=== PATIENT | female | born 1950 | race Caucasian/White ===

== ENCOUNTER 2016-06-15 22:18 | Inpatient (IN) | payer MEDICARE, BC ==
[~2016-06-15] VITALS: Ht 162.6 cm; Wt 76.2 kg
[~2016-06-15 22:18] MED LIST: ALPR1TAB2 PO; APIX5TAB PO; ASPI-482 PO; ATOR10TA PO; DILT120C97 PO; DRON400T PO; HYDR-2666 PO; LISI-338 PO; LISI10TA2 PO; VERA240C2 PO
[2016-06-15] MEDS ORDERED: IV NORMAL SALINE 1000ML BAG 1,000 ML IV SCH (22:30)
[2016-06-15 22:39] LABS: BASO # 0.1 x10^3/uL (0.0-0.2); BASO % 1 % (0-3); EOS % 2 % (0-3); HEMATOCRIT 43.3 % (36.0-47.0); HEMOGLOBIN 14.6 g/dL (12.0-15.5); LYMPH % 27 % (24-48); MEAN CORPUSCULAR HEMOGLOBIN 27 pg (25-35); MEAN CORPUSCULAR HGB CONC 34 g/dL (31-37); MEAN CORPUSCULAR VOLUME 80 fL (79-100); MONO % 7 % (0-9); NEUT % 64 % (31-73); PLATELET COUNT 292 x10^3/uL (140-400); RED BLOOD COUNT 5.44 x10^6/uL (3.50-5.40); RED CELL DISTRIBUTION WIDTH 14.8 % (11.5-14.5)
[2016-06-15] MEDS ORDERED: DILTIAZEM 125 MG in IV DEXTROSE 5% 100 ML IV ONE (22:45)
[2016-06-15] MEDS ORDERED: DILTIAZEM IV PUSH 25 MG/5 ML VIAL. IVP ONE (22:45)
[2016-06-15 22:54] LABS: CALCIUM 9.4 mg/dL (8.5-10.1); CREATININE 0.8 mg/dL (0.6-1.0); POTASSIUM 3.2 mmol/L (3.5-5.1)
[2016-06-15 22:57] LABS: BARBITURATES NEG (NEG); BENZODIAZEPINES NEG (NEG); CANNABINOIDS NEG (NEG); COCAINE NEG (NEG); METHADONE NEG (NEG); OPIATES POS (NEG); PHENCYCLIDINE NEG (NEG)
[2016-06-15 23:01] LABS: ETHANOL, URINE NEG (NEG)
--- NOTE | 2016-06-15 23:01 | PHYS DOC ---
Past Medical History Past Medical History: A-Fib, High Cholesterol, Hypertension, Other Additional Past Medical Histor: bladder stones, AAA, bowel obstruction Past Surgical History: Cholecystectomy, Hysterectomy, Other Additional Past Surgical Histo: bladder lift; bladder stone removal Alcohol Use: Occasionally Drug Use: None Adult General Chief Complaint Chief Complaint: CHEST PAIN HPI HPI Patient is a 66 year old female who presents with palpitations and lightheadedness for the past hour. She has slight dyspnea. She specifically denies chest pain to this provider as documented in triage note; only states she has palpitative discomfort. She has been taking OTC cough syrup recently for slight cold symptoms. Otherwise denies other new stimulant use. Denies fever or chills, cough production, myalgia, hemoptysis, leg pain or swelling, orthopnea, abdominal pain, nausea or vomiting, diarrhea. Review of Systems Review of Systems Constitutional: Denies fever or chills [] Eyes: Denies change in visual acuity, redness, or eye pain [] HENT: Denies nasal congestion or sore throat [] Respiratory: Denies cough or shortness of breath [] Cardiovascular: No additional information not addressed in HPI [] GI: Denies abdominal pain, nausea, vomiting, bloody stools or diarrhea [] : Denies dysuria or hematuria [] Musculoskeletal: Denies back pain or joint pain [] Integument: Denies rash or skin lesions [] Neurologic: Denies headache, focal weakness or sensory changes [] Endocrine: Denies polyuria or polydipsia [] Current Medications Current Medications Current Medications Medications (Trade) Dose Ordered Sig/Riya Start Time Stop Time Status Last Admin Dose Admin Diltiazem HCl (Cardizem) 10 mg 1X ONCE 06/15/16 22:45 06/15/16 22:46 DC 06/15/16 22:45 10 MG Diltiazem HCl/ Dextrose (Cardizem) 125 ml @ 0 mls/hr 1X ONCE 06/15/16 22:45 06/15/16 22:46 DC 06/15/16 22:51 5 MLS/HR Sodium Chloride 1,000 ml @ 1,000 mls/hr Q1H 06/15/16 22:30 06/15/16 23:29 DC 06/15/16 22:44 1,000 MLS/HR Allergies Allergies Allergies Coded Allergies Type Severity Reaction Last Updated Verified codeine Allergy Intermediate 12/07/14 Yes metaxalone Allergy Intermediate 12/07/14 Yes nifedipine Allergy Intermediate Hives 12/07/14 Yes venom-honey bee Allergy Intermediate 12/07/14 Yes Physical Exam Physical Exam Constitutional: Well developed, well nourished, no acute distress, non-toxic appearance. [] HENT: Normocephalic, atraumatic, bilateral external ears normal, oropharynx moist, nose normal. [] Eyes: PERRLA, EOMI. [] Neck: Normal range of motion, supple. [] Cardiovascular: Irregular tachycardia [] Lungs & Thorax: Bilateral breath sounds clear to auscultation [] Abdomen: Bowel sounds normal, soft, no tenderness. [] Skin: Warm, dry, no erythema, no rash. [] Back: Normal ROM. [] Extremities: No tenderness, ROM intact, no edema, no palpable cord. [] Neurologic: Alert and oriented X 3, normal motor function, normal sensory function, no focal deficits noted. [] Psychologic: Affect normal, judgement normal, mood normal. [] Current Patient Data Vital Signs Vital Signs Date Time Temp Pulse Resp B/P Pulse Ox O2 Delivery O2 Flow Rate FiO2 06/15/16 23:30 144 16 133/64 100 Room Air 06/15/16 22:32 97.6 97.6 Lab Values Laboratory Tests Test 06/15/16 22:30 06/15/16 22:40 White Blood Count 11.0x10^3/uL (4.0-11.0) Red Blood Count 5.44x10^6/uL (3.50-5.40) H Hemoglobin 14.6g/dL (12.0-15.5) Hematocrit 43.3% (36.0-47.0) Mean Corpuscular Volume 80fL (79-100) Mean Corpuscular Hemoglobin 27pg (25-35) Mean Corpuscular Hemoglobin Concent 34g/dL (31-37) Red Cell Distribution Width 14.8% (11.5-14.5) H Platelet Count 292x10^3/uL (140-400) Neutrophils (%) (Auto) 64% (31-73) Lymphocytes (%) (Auto) 27% (24-48) Monocytes (%) (Auto) 7% (0-9) Eosinophils (%) (Auto) 2% (0-3) Basophils (%) (Auto) 1% (0-3) Neutrophils # (Auto) 7.0x10^3uL (1.8-7.7) Lymphocytes # (Auto) 3.0x10^3/uL (1.0-4.8) Monocytes # (Auto) 0.7x10^3/uL (0.0-1.1) Eosinophils # (Auto) 0.2x10^3/uL (0.0-0.7) Basophils # (Auto) 0.1x10^3/uL (0.0-0.2) Sodium Level 135mmol/L (136-145) L Potassium Level 3.2mmol/L (3.5-5.1) L Chloride Level 98mmol/L (98-107) Carbon Dioxide Level 24mmol/L (21-32) Anion Gap 13 (6-14) Blood Urea Nitrogen 15mg/dL (7-20) Creatinine 0.8mg/dL (0.6-1.0) Estimated GFR (Cockcroft-Gault) 72.0 Glucose Level 122mg/dL (70-99) H Calcium Level 9.4mg/dL (8.5-10.1) Troponin I Quantitative < 0.017ng/mL (0.000-0.055) RJ-Gyy-Z-Type Natriuretic Peptide 42pg/mL (0-124) Urine Opiates Screen Pos (NEG) Urine Methadone Screen Neg (NEG) Urine Barbiturates Neg (NEG) Urine Phencyclidine Screen Neg (NEG) Urine Amphetamine/Methamphetamine Neg (NEG) Urine Benzodiazepines Screen Neg (NEG) Urine Cocaine Screen Neg (NEG) Urine Cannabinoids Screen Neg (NEG) Urine Ethyl Alcohol Neg (NEG) Laboratory Tests 06/15/16 22:30 Laboratory Tests 06/15/16 22:30 EKG EKG EKG as interpreted by me as A. fib with RVR, rate 154 Radiology/Procedures Radiology/Procedures Chest xray as interpreted by me with no acute cardiopulmonary disease process Course & Med Decision Making Course & Med Decision Making Pertinent Labs and Imaging studies reviewed. (See chart for details) Laboratory evaluation is largely unremarkable. She has required diltiazem drip for management of A. fib with RVR. She states she no longer sees Appl, so will admit to hospitalist service. Discussed case with Dr. Dominguez, who will admit. Cardiology consultation placed. Natty Disclaimer Natty Disclaimer This electronic medical record was generated, in whole or in part, using a voice recognition dictation system. Critical Care Time Critical care time was 35 minutes exclusive of procedures. Departure Departure Impression: Primary Impression: Atrial fibrillation with rapid ventricular response Disposition: ADMITTED INPATIENT Condition: CRITICAL Kenton LAU MD Jun 15, 2016 23:01
[2016-06-16] VITALS (10 sets, daily range): BP systolic 82–135; BP diastolic 25–65
[2016-06-16] MEDS ORDERED: ACETAMINOPHEN 325 MG TABLET. PO PRN
[2016-06-16] MEDS ORDERED: ONDANSETRON PF 4 MG/2 ML VIAL. IV PRN
[2016-06-16] MEDS ORDERED: LISI-334 PO (01:22)
[2016-06-16] MEDS ORDERED: ALPR0.254 PO (01:22)
[2016-06-16] MEDS ORDERED: OM-31CAP4 PO (01:22)
[2016-06-16] MEDS ORDERED: MULT-245 PO (01:22)
[2016-06-16] MEDS ORDERED: METO25TA9 PO (01:22)
[2016-06-16] MEDS ORDERED: HYDR-2680 PO (01:22)
[2016-06-16] MEDS ORDERED: PRAM0.255 PO (01:22)
[2016-06-16] MEDS ORDERED: POTA500T5 PO (01:22)
[2016-06-16] MEDS: ALPRAZOLAM 0.25 MG TABLET PO PRN ×2 (02:07→20:34)
[2016-06-16] MEDS: HYDROCODONE/APAP 10/325 TABLET. PO PRN ×2 (02:07→14:39)
[2016-06-16] MEDS: PRAMIPEXOLE 0.25 MG TABLET. PO SCH ×2 (02:07→20:34)
--- NOTE | 2016-06-16 07:44 | RAD ---
Portable chest, 06/15/2016: History: Dyspnea, atrial fibrillation The heart size is normal. There is calcific plaquing of the aorta. The pulmonary vascularity is within normal limits. No pulmonary infiltrates are seen. There is no evidence of pleural fluid. IMPRESSION: No acute cardiopulmonary abnormality is detected.
[2016-06-16] MEDS: ASPIRIN ENTERIC COATED 81 MG TABLET.DR. PO SCH (08:57)
[2016-06-16] MEDS: MULTIVITAMIN with MINERAL TABLET. PO SCH (08:57)
[2016-06-16] MEDS: APIXABAN 5 MG TABLET. PO SCH ×2 (08:57→20:34)
[2016-06-16] MEDS: LISINOPRIL 20 MG TABLET PO SCH (09:00)
[2016-06-16] MEDS ORDERED: NON FORMULARY ITEM (Potassium Gluconate 500 MG) PO SCH (09:00)
[2016-06-16] MEDS ORDERED: METOPROLOL SUCC 24HR ER 25 MG TAB.ER.24H. PO SCH (09:00)
--- NOTE | 2016-06-16 12:53 | HP ---
ADMIT DATE: 06/16/2016 CHIEF COMPLAINT: Palpitations. HISTORY OF PRESENT ILLNESS: The patient is a 66-year-old woman with past medical history of AFib, previously admitted in 11/2014 here, who presented with palpitations and lightheadedness that started at home. She also reported slight dyspnea with this, but denied any chest pain, any nausea, vomiting, numbness or tingling. She relates that she had been diagnosed with a flu on 06/01/2016 and had been dealing with the aftermath cough and had been taking lxom-rcg-qopxojo cough medications. She denies any ongoing fevers or chills. She did, however, have an episode of diarrhea yesterday. In the Emergency Room, she was found with atrial fibrillation and rapid ventricular response and was therefore started on diltiazem drip and admitted to the CV ICU. PAST MEDICAL HISTORY: AFib, hypertension, hypercholesterolemia, AAA, status post cholecystectomy, hysterectomy, partial colectomy for polyps. FAMILY HISTORY: Positive for heart disease in mother. SOCIAL HISTORY: Lives by herself. Quit smoking after her AFib episode in 2014, accumulating approximately 07-ulae-wxtu history. No alcohol or drug use. ALLERGIES: CODEINE, METAXALONE, NIFEDIPINE. MEDICATIONS: Home medications reconciled with MAR. REVIEW OF SYSTEMS: Positive as per HPI. Her palpitations actually currently are resolved. She denies any ongoing symptoms otherwise. PHYSICAL EXAMINATION: VITAL SIGNS: From today show a blood pressure of 109/58, heart rate of 65, respiratory rate at 18. She is afebrile. GENERAL: This is a well-nourished, well developed 66-year-old woman, alert and oriented, in no acute distress. HEENT: Shows no scleral icterus. NECK: Supple without any lymphadenopathy. LUNGS: Clear to auscultation bilaterally. HEART: Has regular rate and rhythm. ABDOMEN: Has positive bowel sounds, soft, nontender. EXTREMITIES: Show no edema. SKIN: Warm, soft and dry without any rash. LABORATORY DATA: CBC with a WBC of 11.0, hemoglobin of 14.6, platelets of 292. Chemistries with a BUN and creatinine of 15 and 0.8, potassium of 3.5, initial troponin negative, BNP negative. Tox screen is positive for opiates. IMAGING DATA: Chest x-ray shows no acute cardiopulmonary abnormality. ASSESSMENT AND PLAN: The patient is a 66-year-old woman with episode of atrial fibrillation and rapid ventricular response, this now has resolved. She is actually in sinus rhythm at this time. Initial troponin was negative. With her previous history, concern is that potential decongestants in her home medications or potentially slightly low potassium levels could have triggered her episode. Cardiac consult is pending. We will await further input. We will continue all her home medications including the Eliquis for PAF. Discharge plans as per Cardiology. MICHA BARAKAT MD DR: UR/nts JOB#: [id number] / [id number] TOLU
[2016-06-16 13:58] LABS: BILIRUBIN,URINE NEGATIVE (NEG); GLUCOSE,URINE NEGATIVE (NEG); NITRITE,URINE POSITIVE (NEG); PH,URINE 5.5; PROTEIN,URINE NEGATIVE (NEG-TRACE); UROBILINOGEN,URINE 0.2 mg/dL (0.2 mg/dL)
[2016-06-16 14:00] LABS: BACTERIA,URINE MANY /HPF (0-FEW); RBC,URINE OCC /HPF (0-2); SQUAMOUS EPITHELIAL CELL,UR FEW /LPF; WBC,URINE 20-40 /HPF (0-4)
--- NOTE | 2016-06-16 14:20 | EKG ---
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
--- NOTE | 2016-06-16 15:44 | PDOC2 ---
CONSULT Date of Consult Date of Consult DATE: 06/16/16 TIME: 15:38 Reason for Consult Reason for Consult: Atrial fibrillation Referring Physician Referring Physician: Dr. Posadas Identification/Chief Complaint Chief Complaint Palpitations Source Source: Chart review, Patient History of Present Illness Reason for Visit: 66-year-old female with history of paroxysmal atrial fibrillation presented with palpitations associated with retrosternal chest heaviness and lightheadedness. She was found to be in atrial fibrillation with rapid ventricular response and started on intravenous Cardizem infusion with successful conversion to sinus rhythm. Patient presently feels significantly better and denied any chest pain or palpitations. She denied any orthopnea/PND or syncope. Past Medical History Cardiovascular: AFIB, HTN, Hyperlipidemia, Other Pulmonary: No pertinent hx CENTRAL NERVOUS SYSTEM: Other GI: No pertinent hx Heme/Onc: No pertinent hx Hepatobiliary: No pertinent hx Psych: Anxiety Musculoskeletal: Osteoarthritis Rheumatologic: No pertinent hx Infectious disease: No pertinent hx Renal/: No pertinent hx, Urinary Incontinence, Other Endocrine: No pertinent hx Past Surgical History Past Surgical History: Hysterectomy, Other Family History Family History: Coronary Artery Disease Social History ALCOHOL: none Drugs: None Lives: Alone Domestic Violence: Neg Current Problem List Problem List Problems Medical Problems: (1) A-fib Status: Acute (2) Atrial fibrillation with rapid ventricular response Status: Acute Current Medications Current Medications Current Medications Sodium Chloride 1,000 ml @ 1,000 mls/hr Q1H IV Last administered on 06/15/16 22:44; Start 06/15/16 at 22:30; Stop 06/15/16 at 23:29; Status DC Diltiazem HCl/ Dextrose (Cardizem) 125 ml @ 0 mls/hr 1X ONCE IV Last administered on 06/15/16 22:51; Start 06/15/16 at 22:45; Stop 06/15/16 at 22:46 ; Status DC Diltiazem HCl (Cardizem) 10 mg 1X ONCE IVP Last administered on 06/15/16 22: 45; Start 06/15/16 at 22:45; Stop 06/15/16 at 22:46; Status DC Ondansetron HCl (Zofran) 4 mg PRN Q8HRS PRN IV NAUSEA/VOMITING; Start 06/16/16 at 00:00; Stop 06/16/16 at 23:59 Acetaminophen (Tylenol) 650 mg PRN Q4HRS PRN PO FEVER Last administered on 06/16 12:25; Start 06/16/16 at 00:00; Stop 06/16/16 at 23:59 Alprazolam (Xanax) 0.25 mg PRN QHS PRN PO ANXIETY / AGITATION Last administered on 06/16/16 02:07; Start 06/16/16 at 02:00 Apixaban (Eliquis) 5 mg BID PO Last administered on 06/16/16 08:57; Start at 09:00 Aspirin (Ecotrin) 81 mg DAILY PO Last administered on 06/16/16 08:57; Start at 09:00 Acetaminophen/ Hydrocodone Bitart (Lortab 10/325) 1 tab PRN Q8HRS PRN PO PAIN Last administered on 06/16/16 14:39; Start 06/16/16 at 02:00 Lisinopril (Prinivil) 20 mg DAILY PO ; Start 06/16/16 at 09:00 Metoprolol Succinate (Toprol Xl) 25 mg DAILY PO ; Start 06/16/16 at 09:00 Pramipexole Dihydrochloride (miraPEX) 0.25 mg HS PO ; Start 06/16/16 at 21:00; Stop 06/16/16 at 21:00; Status DC Multivitamins/ Calcium (Thera M Plus) 1 tab DAILY PO Last administered on 08:57; Start 06/16/16 at 09:00 Fish Oil (Fish Oil) 1,000 mg HS PO ; Start 06/16/16 at 21:00 Non-Formulary Medication 500 mg DAILY PO ; Start 06/16/16 at 09:00; Stop at 09:00; Status DC Pramipexole Dihydrochloride (miraPEX) 0.25 mg HS PO Last administered on 02:07; Start 06/16/16 at 02:15 Info (Anti-Coagulation Monitoring By Pharmacy) 1 each PRN DAILY PRN MC SEE COMMENTS; Start 06/16/16 at 15:00 Active Scripts Active Reported Potassium Gluconate 500 Mg Tablet 500 Mg PO DAILY Multi Vitamin Daily (Multivitamin) 1 Each Tablet 1 Each PO DAILY Fish Oil + Vitamin D-3 Softgel (Om-3/Dha/Epa/Fish Oil/Vit D3) 1 Each Capsule 1 Each PO HS Metoprolol Succinate ( Xl ) (Metoprolol Succinate) 25 Mg Tab.er.24h 25 Mg PO DAILY Mirapex (Pramipexole Di-Hcl) 0.25 Mg Tablet 0.25 Mg PO HS Alprazolam 0.25 Mg Tablet 0.25 Mg PO HS PRN Lortab 10-325 mg Tablet (Hydrocodone/Acetaminophen) 1 Each Tablet 1 Tab PO PRN Q8HRS PRN Lisinopril 20 Mg Tablet 20 Mg PO DAILY Aspir 81 (Aspirin) 81 Mg Tablet.dr 1 Tab PO DAILY Eliquis (Apixaban) 5 Mg Tablet 5 Mg PO BID Allergies Allergies: Coded Allergies: codeine (Verified Allergy, Intermediate, 12/07/14) metaxalone (Verified Allergy, Intermediate, 12/07/14) nifedipine (Verified Allergy, Intermediate, Hives, 12/07/14) venom-honey bee (Verified Allergy, Intermediate, 12/07/14) ROS PSYCHOLOGICAL ROS: No: Hallucinations Eyes: No Loss of vision HEENT: No: Epistaxis Respiratory: No: Hemoptysis, Orthopnea Cardiovascular: yes Chest Pain, yes Palpitations Gastrointestinal: No Diarrhea, No Vomiting Genitourinary: No Hematuria Neurological: No Seizures Skin: No Rash Physical Exam General: Alert, Oriented X3 HEENT: Atraumatic, PERRLA Lungs: Clear to auscultation Heart: Regular rate Abdomen: Soft, No tenderness Extremities: No edema Psych/Mental Status: Mood NL Vitals VITALS Vital Signs Date Time Temp Pulse Resp B/P Pulse Ox O2 Delivery O2 Flow Rate FiO2 06/16/16 14:58 97.8 66 18 135/37 94 Room Air 97.8 Labs Labs Laboratory Tests Test 06/15/16 22:30 06/15/16 22:40 06/16/16 13:00 White Blood Count 11.0x10^3/uL (4.0-11.0) Red Blood Count 5.44x10^6/uL (3.50-5.40) Hemoglobin 14.6g/dL (12.0-15.5) Hematocrit 43.3% (36.0-47.0) Mean Corpuscular Volume 80fL (79-100) Mean Corpuscular Hemoglobin 27pg (25-35) Mean Corpuscular Hemoglobin Concent 34g/dL (31-37) Red Cell Distribution Width 14.8% (11.5-14.5) Platelet Count 292x10^3/uL (140-400) Neutrophils (%) (Auto) 64% (31-73) Lymphocytes (%) (Auto) 27% (24-48) Monocytes (%) (Auto) 7% (0-9) Eosinophils (%) (Auto) 2% (0-3) Basophils (%) (Auto) 1% (0-3) Neutrophils # (Auto) 7.0x10^3uL (1.8-7.7) Lymphocytes # (Auto) 3.0x10^3/uL (1.0-4.8) Monocytes # (Auto) 0.7x10^3/uL (0.0-1.1) Eosinophils # (Auto) 0.2x10^3/uL (0.0-0.7) Basophils # (Auto) 0.1x10^3/uL (0.0-0.2) Sodium Level 135mmol/L (136-145) Potassium Level 3.2mmol/L (3.5-5.1) Chloride Level 98mmol/L (98-107) Carbon Dioxide Level 24mmol/L (21-32) Anion Gap 13 (6-14) Blood Urea Nitrogen 15mg/dL (7-20) Creatinine 0.8mg/dL (0.6-1.0) Estimated GFR (Cockcroft-Gault) 72.0 Glucose Level 122mg/dL (70-99) Calcium Level 9.4mg/dL (8.5-10.1) Troponin I Quantitative < 0.017ng/mL (0.000-0.055) TS-Atq-N-Type Natriuretic Peptide 42pg/mL (0-124) Urine Opiates Screen Pos (NEG) Urine Methadone Screen Neg (NEG) Urine Barbiturates Neg (NEG) Urine Phencyclidine Screen Neg (NEG) Urine Amphetamine/Methamphetamine Neg (NEG) Urine Benzodiazepines Screen Neg (NEG) Urine Cocaine Screen Neg (NEG) Urine Cannabinoids Screen Neg (NEG) Urine Ethyl Alcohol Neg (NEG) Urine Collection Type Unknown Urine Color Yellow Urine Clarity Clear Urine pH 5.5 Urine Specific [place] <=1.005 Urine Protein Negativemg/dL (NEG-TRACE) Urine Glucose (UA) Negativemg/dL (NEG) Urine Ketones (Stick) Negativemg/dL (NEG) Urine Blood Moderate (NEG) Urine Nitrite Positive (NEG) Urine Bilirubin Negative (NEG) Urine Urobilinogen Dipstick 0.2mg/dL (0.2 mg/dL) Urine Leukocyte Esterase Large (NEG) Urine RBC Occ/HPF (0-2) Urine WBC 20-40/HPF (0-4) Urine Squamous Epithelial Cells Few/LPF Urine Bacteria Many/HPF (0-FEW) Laboratory Tests Test 06/15/16 22:30 06/15/16 22:40 06/16/16 13:00 White Blood Count 11.0x10^3/uL (4.0-11.0) Red Blood Count 5.44x10^6/uL (3.50-5.40) Hemoglobin 14.6g/dL (12.0-15.5) Hematocrit 43.3% (36.0-47.0) Mean Corpuscular Volume 80fL (79-100) Mean Corpuscular Hemoglobin 27pg (25-35) Mean Corpuscular Hemoglobin Concent 34g/dL (31-37) Red Cell Distribution Width 14.8% (11.5-14.5) Platelet Count 292x10^3/uL (140-400) Neutrophils (%) (Auto) 64% (31-73) Lymphocytes (%) (Auto) 27% (24-48) Monocytes (%) (Auto) 7% (0-9) Eosinophils (%) (Auto) 2% (0-3) Basophils (%) (Auto) 1% (0-3) Neutrophils # (Auto) 7.0x10^3uL (1.8-7.7) Lymphocytes # (Auto) 3.0x10^3/uL (1.0-4.8) Monocytes # (Auto) 0.7x10^3/uL (0.0-1.1) Eosinophils # (Auto) 0.2x10^3/uL (0.0-0.7) Basophils # (Auto) 0.1x10^3/uL (0.0-0.2) Sodium Level 135mmol/L (136-145) Potassium Level 3.2mmol/L (3.5-5.1) Chloride Level 98mmol/L (98-107) Carbon Dioxide Level 24mmol/L (21-32) Anion Gap 13 (6-14) Blood Urea Nitrogen 15mg/dL (7-20) Creatinine 0.8mg/dL (0.6-1.0) Estimated GFR (Cockcroft-Gault) 72.0 Glucose Level 122mg/dL (70-99) Calcium Level 9.4mg/dL (8.5-10.1) Troponin I Quantitative < 0.017ng/mL (0.000-0.055) JY-Tye-J-Type Natriuretic Peptide 42pg/mL (0-124) Urine Opiates Screen Pos (NEG) Urine Methadone Screen Neg (NEG) Urine Barbiturates Neg (NEG) Urine Phencyclidine Screen Neg (NEG) Urine Amphetamine/Methamphetamine Neg (NEG) Urine Benzodiazepines Screen Neg (NEG) Urine Cocaine Screen Neg (NEG) Urine Cannabinoids Screen Neg (NEG) Urine Ethyl Alcohol Neg (NEG) Urine Collection Type Unknown Urine Color Yellow Urine Clarity Clear Urine pH 5.5 Urine Specific [place] <=1.005 Urine Protein Negativemg/dL (NEG-TRACE) Urine Glucose (UA) Negativemg/dL (NEG) Urine Ketones (Stick) Negativemg/dL (NEG) Urine Blood Moderate (NEG) Urine Nitrite Positive (NEG) Urine Bilirubin Negative (NEG) Urine Urobilinogen Dipstick 0.2mg/dL (0.2 mg/dL) Urine Leukocyte Esterase Large (NEG) Urine RBC Occ/HPF (0-2) Urine WBC 20-40/HPF (0-4) Urine Squamous Epithelial Cells Few/LPF Urine Bacteria Many/HPF (0-FEW) Assessment/Plan Assessment/Plan 1. Atrial fibrillation with rapid ventricular response: Patient has history of paroxysmal atrial fibrillation last recorded episode in 2014 but patient stated that she has been having intermittent episodes of palpitations in the interim. She was previously taking multaq that was stopped for uncertain reasons. She is usually seen at [facility] by Dr. Potts who follows her for her AAA. She is currently back in sinus rhythm. Intravenous Cardizem was stopped secondary to hypotension. Stop metoprolol and start sotalol for rhythm maintenance. If her blood pressure stabilizes, we will consider calcium channel blockers. Continue eliquis for stroke prophylaxis. Check 2-D echo to assess LV systolic function. 2. Chest pain most probably secondary to rapid ventricular response. Myocardial infarction ruled out. We will obtain Lexiscan nuclear stress test to rule out ischemia. 3. Hypertension: Well-controlled 4. AAA: Being followed by Dr. Potts at [facility]. Thank you for your consultation. SLOAN CORCORAN MD Jun 16, 2016 15:44
[2016-06-16] MEDS: ANTI-COAG MONITOR BY PHARMACY. MC PRN (15:55)
[2016-06-16] MEDS ORDERED: CEFTRIAXONE SODIUM 1 GM in IV NORMAL SALINE 50ML 50 ML IV SCH (20:00)
[2016-06-16] MEDS: SOTALOL 80 MG TABLET. PO SCH (20:34)
[2016-06-16] MEDS ORDERED: PRAMIPEXOLE 0.25 MG TABLET. PO SCH (21:00)
[2016-06-16] MEDS ORDERED: OMEGA-3 FATTY ACIDS/FISH OIL 1,000 MG CAPSULE. PO SCH (21:00)
[2016-06-17 03:00] VITALS: BP 130/60
[2016-06-17 07:00] VITALS: BP 126/62
[2016-06-17] MEDS ORDERED: REGADENOSON 0.4 MG/5 ML DISP.SYRIN. IV ONE (08:00)
--- NOTE | 2016-06-17 10:15 | EKG ---
[facility] [address] [place] [address] Test Date: 2016-06-17 Test Time: 10:13:23 Pat Name: ANASTASIA OSEGUERA Department: Room: 264 1 Gender: F Pain Coordinator: JESUS : 1950 Requested By: SLOAN CORCORAN Order Number: [id number] Reading MD: Measurements Intervals [place] Rate: 72 P: 47 FL: 162 QRS: 24 QRSD: 84 T: 36 QT: 394 QTc: 433 Interpretive Statements SINUS RHYTHM NO SPECIFIC ECG ABNORMALITIES RI6.01 Compared to ECG 12/06/2014 16:36:06 No significant changes
--- NOTE | 2016-06-17 10:37 | CARD ---
APPROVED REPORT EXAM: Two-dimensional and M-mode echocardiogram with Doppler and color Doppler. Other Information Quality : Good INDICATION Chest Pain 2D DIMENSIONS RVDd3.2 (2.9-3.5cm)Left Atrium(2D)3.6 (1.6-4.0cm) IVSd1.0 (0.7-1.1cm)Aortic Root(2D)2.4 (2.0-3.7cm) LVDd4.0 (3.9-5.9cm)LVOT Diameter1.9 (1.8-2.4cm) PWd1.1 (0.7-1.1cm)LVDs2.4 (2.5-4.0cm) FS (%) 30.0 %SV49.3 ml LVEF(%)60.0 (>50%) Aortic Valve AoV Peak Valente.128.7cm/sAoV VTI24.3cm AO Peak GR.6.6mmHgLVOT VTI 22.56cm AO Mean GR.3mmHgAVA (VTI)2.50cm2 Mitral Valve MV E Khmpbibp36.6cm/sMV DECEL [id number] MV A Vjzaqmbj575.5cm/sE/A Ratio0.6 TDI Lateral E' P. V6.11cm/sMedial E' P. V5.08cm/s E/Lateral E'9.8E/Medial E'11.7 Pulmonary Vein S1 Vbzdqaev12.9cm/sS2 Kuamvrbe46.44cm/s D2 Yfqapdmn80.4cm/sPVa [id number] LEFT VENTRICLE The left ventricle is normal size. There is mild concentric left ventricular hypertrophy. The left ve ntricular systolic function is normal and the ejection fraction is within normal range. The Ejection Fraction is 55-60%. There is normal LV segmental wall motion. Transmitral Doppler flow pattern is Gra de I-abnormal relaxation pattern. RIGHT VENTRICLE The right ventricle is normal size. The right ventricular systolic function is normal. ATRIA The left atrium size is normal. The right atrium size is normal. The interatrial septum is intact wit h no evidence for an atrial septal defect or patent foramen ovale as noted on 2-D or Doppler imaging. AORTIC VALVE The aortic valve is mildly sclerotic. Doppler and Color Flow revealed no significant aortic regurgita tion. There is no significant aortic valvular stenosis. MITRAL VALVE The mitral valve is calcified but opens well. There is no evidence of mitral valve prolapse. There is no mitral valve stenosis. Doppler and Color-flow revealed trace mitral regurgitation. TRICUSPID VALVE The tricuspid valve is normal in structure and function. Doppler and Color Flow revealed no tricuspid valve regurgitation noted. There is no tricuspid valve stenosis. PULMONIC VALVE Doppler and Color Flow revealed no pulmonic valvular regurgitation. There is no pulmonic valvular delon nosis. GREAT VESSELS The aortic root is normal in size. The ascending aorta is normal in size. The IVC is normal in size a nd collapses >50% with inspiration. PERICARDIAL EFFUSION There is no evidence of significant pericardial effusion. Critical Notification Critical Value: No <Conclusion> There is mild concentric left ventricular hypertrophy. The left ventricular systolic function is normal and the ejection fraction is within normal range. Th e Ejection Fraction is 55-60%. No significant valvular disease.
[2016-06-17 11:03] VITALS: BP 148/71
[2016-06-17] MEDS: ANTI-COAG MONITOR BY PHARMACY. MC PRN (11:05)
--- NOTE | 2016-06-17 11:05 | RAD ---
APPROVED REPORT Test Type: Pharmacological Stress Nurse/Tech: Demetrice Ann R.N. Test Indications: afib Cardiac History: afib, htn Medications: see ehr Medical History: see ehr Resting ECG: sr Resting Heart Rate: 69 bpm Resting Blood Pressure: 154/65mmHg Pretest Chest Pain: No chest pain Nurse/Tech Notes lungs cta, heart tones regular, good radial pulse Consent: The procedure was explained to the patient in lay terms. Informed consent was witnessed. Wilian eout was entered into [employer]. History and Stress Test performed by Demetrice Ann R.N. Pharm. Details Pharmacologic stress testing was performed using 0.4mg per 5ml of regadenoson given intravenously ove r 7-10 seconds. Stress Symptoms No chest pain or symptoms. POST EXERCISE Reason for Termination: Infusion complete Target HR: No Max HR: 98 bpm Max Blood Pressure: 161/82mmHg Chest Pain: No. Arrhythmia: No. ST Change: No. INTERPRETATION Stress EKG Conclusion: No evidence of stress induced EKG changes. Imaging Protocol IMAGE PROTOCOL: Rest Tc-99m/stress Tc-99m 1 day Rest: Stress: Viability: Radiopharm.Tc99m [id number] Sestamibi Dose10.1mCi 31mCi Duration 15min. 10min. Img Date 06/17/2016 06/17/2016 Inj-Img [id number]. 60min. Rest Admin Site:IV - Right WristAdministrator:RT Diaz (R)(N) Stress Admin Site: IV - Right WristAdministrator: ZHENG Keenan STRESS DATA End Diast. Vol.66.0mlAv. Heart Rate78.0bpm End Syst. Vol.14.0mlCO Index BSA0.0L/min Myocardial Ceiz580.0gEject. Jcgvnerr39.0% Stress Rates Pk. Fill Rate3.51EDV/secLVtime Pk. Fill 218.16msec Pk. Empty Rate4.95ESV/secLVtime Pk. Icqdc604.61msec 04/23 Pk. Fill0.72EDV/sec Stress Scores Regional WT1.00Summed WT2.00 Regional WM0.00Summed WM0.00 The rest and stress images show normal perfusion, normal contraction and thickening. LV Perf. Quant 17 Seg. SSS0.00 17 Seg. SRS0.00 17 Seg. SDS0.00 Stress Defect Extent (% LAD)0.00Rest Defect Extent (% LAD)0.00Rev. Defect Extent (% LAD)0.00 Stress Defect Extent (% LCX) 0.00Rest Defect Extent (% LCX)0.00Rev. Defect Extent (% LCX)0.00 Stress Defect Extent (% RCA)0.00Rest Defect Extent (% RCA)0.00Rev. Defect Extent (% RCA)0.00 Stress Defect Extent (% ELOINA)0.00Rest Defect Extent (% ELOINA)0.00Rev. Defect Extent (% ELOINA)0.00 Other Information Quality:Good Risk Assessment: Low Risk Conclusion 1. No evidence of vasodilator stress induced EKG changes. 2. Normal myocardial perfusion at stress and rest. 3. Normal LV function. 4. Low risk study.
[2016-06-17] MEDS: LISINOPRIL 20 MG TABLET PO SCH (11:10)
[2016-06-17] MEDS: MULTIVITAMIN with MINERAL TABLET. PO SCH (11:10)
[2016-06-17] MEDS: ASPIRIN ENTERIC COATED 81 MG TABLET.DR. PO SCH (11:11)
[2016-06-17] MEDS: SOTALOL 80 MG TABLET. PO SCH (11:14)
[2016-06-17] MEDS: APIXABAN 5 MG TABLET. PO SCH (11:18)
[2016-06-17] MEDS: HYDROCODONE/APAP 10/325 TABLET. PO PRN (11:19)
--- NOTE | 2016-06-17 12:49 | PDOC ---
CARDIO Progress Notes Date and Time Date of Service 06/17/2016 Time of Evaluation 0940 Subjective Subjective: No Chest Pain, No shortness of breath, No Palpitations, No Dizziness Vitals Vitals Vital Signs Date Time Temp Pulse Resp B/P Pulse Ox O2 Delivery O2 Flow Rate FiO2 06/17/16 11:19 Room Air 06/17/16 11:14 83 148/71 06/17/16 11:03 98.8 18 98 98.8 Weight Weight [ ] Input and Output Intake and Output Intake and Output 06/17/16 07:00 Intake Total 990 ml Output Total 1250 ml Balance -260 ml Intake Oral 940 ml IV Total 50 ml Output Urine Total 1250 ml Laboratory Labs Laboratory Tests Test 06/16/16 13:00 Urine Collection Type Unknown Urine Color Yellow Urine Clarity Clear Urine pH 5.5 Urine Specific Friend <=1.005 Urine Protein Negativemg/dL (NEG-TRACE) Urine Glucose (UA) Negativemg/dL (NEG) Urine Ketones (Stick) Negativemg/dL (NEG) Urine Blood Moderate (NEG) Urine Nitrite Positive (NEG) Urine Bilirubin Negative (NEG) Urine Urobilinogen Dipstick 0.2mg/dL (0.2 mg/dL) Urine Leukocyte Esterase Large (NEG) Urine RBC Occ/HPF (0-2) Urine WBC 20-40/HPF (0-4) Urine Squamous Epithelial Cells Few/LPF Urine Bacteria Many/HPF (0-FEW) Physical Exam HEENT: Neck Supple W Full Motion Chest: Symmetric LUNGS: Clear to Auscultation Heart: S1S2, RRR, no murmurs Abdomen: Soft N/T Extremities: No Edema, No Calf Tenderness Neurology: alert, oriented, follow commands Assessment Assessment 1. PAFIB with RVR 2. Chest pain: r/t #1. MPI unremarkable for ischemia 3. Hypertension: TTE with normal wall motion and EF. 4. AAA: Being followed by Dr. Potts at [facility]. Recommendations 1. Continue with sotalol, QTc unchanged at 433. Repeat EKG in our office on Fri. 2. Start on cardizem CD 120 mg 3. Eliquis for stroke prevention 4. TSH and Lipid panel today 5. August DC today. FRANCISCO RICARDO APRN Jun 17, 2016 12:49
[2016-06-17] MEDS ORDERED: DILTIAZEM HCL 120 MG CAP.ER.24H PO SCH (13:00)
[2016-06-17 13:45] LABS: CREATININE 0.8 mg/dL (0.6-1.0); MAGNESIUM 1.7 mg/dL (1.8-2.4); POTASSIUM 3.8 mmol/L (3.5-5.1)
[2016-06-17 13:52] LABS: CHOLESTEROL/HDL RATIO 3.5
[2016-06-17] MEDS ORDERED: CEPHALEXIN 250 MG CAPSULE PO SCH (14:00)
[2016-06-17 14:46] VITALS: BP 125/56
[2016-06-17] MEDS ORDERED: MAGNESIUM SULFATE 2GM 50 ML IV ONE (15:00)
[2016-06-17] MEDS ORDERED: CEPH-264 PO (15:02)
--- NOTE | 2016-06-17 15:04 | PDOC3 ---
Discharge Summary Visit Information Date of Admission: Jun 15, 2016 Date of Discharge: Jun 17, 2016 Admitting Diagnosis Comment: 1. PAFIB with RVR 2. Chest pain: r/t #1. MPI unremarkable for ischemia 3. Hypertension: TTE with normal wall motion and EF. 4. AAA: follows with outside cards Final Diagnosis Problems Medical Problems: (1) A-fib Status: Acute (2) Atrial fibrillation with rapid ventricular response Status: Acute Brief Hospital Course Allergies Allergies Coded Allergies Type Severity Reaction Last Updated Verified codeine Allergy Intermediate 12/07/14 Yes metaxalone Allergy Intermediate 12/07/14 Yes nifedipine Allergy Intermediate Hives 12/07/14 Yes venom-honey bee Allergy Intermediate 12/07/14 Yes Vital Signs Vital Signs Date Time Temp Pulse Resp B/P Pulse Ox O2 Delivery O2 Flow Rate FiO2 06/17/16 14:46 98.4 67 18 125/56 96 Room Air 98.4 Lab Results Laboratory Tests Test 06/15/16 22:30 06/15/16 22:40 06/16/16 13:00 06/17/16 13:05 White Blood Count 11.0x10^3/uL (4.0-11.0) Red Blood Count 5.44x10^6/uL (3.50-5.40) Hemoglobin 14.6g/dL (12.0-15.5) Hematocrit 43.3% (36.0-47.0) Mean Corpuscular Volume 80fL (79-100) Mean Corpuscular Hemoglobin 27pg (25-35) Mean Corpuscular Hemoglobin Concent 34g/dL (31-37) Red Cell Distribution Width 14.8% (11.5-14.5) Platelet Count 292x10^3/uL (140-400) Neutrophils (%) (Auto) 64% (31-73) Lymphocytes (%) (Auto) 27% (24-48) Monocytes (%) (Auto) 7% (0-9) Eosinophils (%) (Auto) 2% (0-3) Basophils (%) (Auto) 1% (0-3) Neutrophils # (Auto) 7.0x10^3uL (1.8-7.7) Lymphocytes # (Auto) 3.0x10^3/uL (1.0-4.8) Monocytes # (Auto) 0.7x10^3/uL (0.0-1.1) Eosinophils # (Auto) 0.2x10^3/uL (0.0-0.7) Basophils # (Auto) 0.1x10^3/uL (0.0-0.2) Sodium Level 135mmol/L (136-145) 144mmol/L (136-145) Potassium Level 3.2mmol/L (3.5-5.1) 3.8mmol/L (3.5-5.1) Chloride Level 98mmol/L (98-107) 105mmol/L (98-107) Carbon Dioxide Level 24mmol/L (21-32) 29mmol/L (21-32) Anion Gap 13 (6-14) 10 (6-14) Blood Urea Nitrogen 15mg/dL (7-20) 13mg/dL (7-20) Creatinine 0.8mg/dL (0.6-1.0) 0.8mg/dL (0.6-1.0) Estimated GFR (Cockcroft-Gault) 72.0 72.0 Glucose Level 122mg/dL (70-99) 123mg/dL (70-99) Calcium Level 9.4mg/dL (8.5-10.1) 9.0mg/dL (8.5-10.1) Troponin I Quantitative < 0.017ng/mL (0.000-0.055) NO-Tgk-M-Type Natriuretic Peptide 42pg/mL (0-124) Urine Opiates Screen Pos (NEG) Urine Methadone Screen Neg (NEG) Urine Barbiturates Neg (NEG) Urine Phencyclidine Screen Neg (NEG) Urine Amphetamine/Methamphetamine Neg (NEG) Urine Benzodiazepines Screen Neg (NEG) Urine Cocaine Screen Neg (NEG) Urine Cannabinoids Screen Neg (NEG) Urine Ethyl Alcohol Neg (NEG) Urine Collection Type Unknown Urine Color Yellow Urine Clarity Clear Urine pH 5.5 Urine Specific [place] <=1.005 Urine Protein Negativemg/dL (NEG-TRACE) Urine Glucose (UA) Negativemg/dL (NEG) Urine Ketones (Stick) Negativemg/dL (NEG) Urine Blood Moderate (NEG) Urine Nitrite Positive (NEG) Urine Bilirubin Negative (NEG) Urine Urobilinogen Dipstick 0.2mg/dL (0.2 mg/dL) Urine Leukocyte Esterase Large (NEG) Urine RBC Occ/HPF (0-2) Urine WBC 20-40/HPF (0-4) Urine Squamous Epithelial Cells Few/LPF Urine Bacteria Many/HPF (0-FEW) Magnesium Level 1.7mg/dL (1.8-2.4) Triglycerides Level 363mg/dL (0-150) Cholesterol Level 142mg/dL (0-200) LDL Cholesterol, Calculated 28mg/dL (0-100) VLDL Cholesterol, Calculated 73mg/dL (0-40) HDL Cholesterol 41mg/dL (40-60) Cholesterol/HDL Ratio 3.5 Thyroid Stimulating Hormone (TSH) 0.692uIU/mL (0.358-3.74) Laboratory Tests Test 06/17/16 13:05 Sodium Level 144mmol/L (136-145) Potassium Level 3.8mmol/L (3.5-5.1) Chloride Level 105mmol/L (98-107) Carbon Dioxide Level 29mmol/L (21-32) Anion Gap 10 (6-14) Blood Urea Nitrogen 13mg/dL (7-20) Creatinine 0.8mg/dL (0.6-1.0) Estimated GFR (Cockcroft-Gault) 72.0 Glucose Level 123mg/dL (70-99) Calcium Level 9.0mg/dL (8.5-10.1) Magnesium Level 1.7mg/dL (1.8-2.4) Triglycerides Level 363mg/dL (0-150) Cholesterol Level 142mg/dL (0-200) LDL Cholesterol, Calculated 28mg/dL (0-100) VLDL Cholesterol, Calculated 73mg/dL (0-40) HDL Cholesterol 41mg/dL (40-60) Cholesterol/HDL Ratio 3.5 Thyroid Stimulating Hormone (TSH) 0.692uIU/mL (0.358-3.74) Brief Hospital Course Ms. Pena is a 66 old female admitted for atrial fib RVR, needed cardizem gtt, Shifted to PO rate controlling agents Incidental UTI, now admits some dysuria Treated with IV rocephin NO urine cx Non toxic PO keflex Rxd for adis Johnson Rn at bedside Pt benedicto nd examined Consults: cards PRoc: echo Discharge Information Condition at Discharge: Improved, Stable Disposition/Orders: D/C to Home Scheduled Apixaban (Eliquis) 5 MG PO BID (Reported) Aspirin (Aspir 81) 1 TAB PO DAILY (Reported) Lisinopril (Lisinopril) 20 MG PO DAILY (Reported) Metoprolol Succinate (Metoprolol Succinate ( Xl )) 25 MG PO DAILY (Reported) Multivitamin (Multi Vitamin Daily) 1 EACH PO DAILY (Reported) Om-3/Dha/Epa/Fish Oil/Vit D3 (Fish Oil + Vitamin D-3 Softgel) 1 EACH PO HS ( Reported) Potassium Gluconate (Potassium Gluconate) 500 MG PO DAILY (Reported) Pramipexole Di-Hcl (Mirapex) 0.25 MG PO HS (Reported) Scheduled PRN Alprazolam (Alprazolam) 0.25 MG PO HS PRN PRN ANXIETY / AGITATION (Reported) Hydrocodone/Acetaminophen (Lortab 10-325 mg Tablet) 1 TAB PO PRN Q8HRS PRN PRN PAIN (Reported) Discontinued Medications Alprazolam (Xanax) 1 TAB PO BID (Reported) Atorvastatin Calcium (Lipitor) 1 TAB PO QHS (Reported) Diltiazem Hcl (Diltiazem 24HR Cd) 1 CAP PO DAILY (Reported) Dronedarone Hcl (Multaq) 1 TAB PO BID (Reported) Hydrocodone Bit/Acetaminophen (Hydrocodone-Apap 5-325 ) 1 TAB PO TID ( Reported) Lisinopril (Lisinopril) 1 TAB PO DAILY (Reported) GEORGINA MADDOX MD Jun 17, 2016 15:04
[2016-06-17] MEDS ORDERED: DILT120C97 PO (17:21)
[2016-06-17] MEDS ORDERED: SOTA80TA PO (17:22)
[2016-06-17] MEDS ORDERED: OMEGA-3 FATTY ACIDS/FISH OIL 1,000 MG CAPSULE. PO SCH (21:00)
== END 2016-06-17 18:10 | disposition home or self-care (01) | DRG 309 ==
LOC: ER 22:18 → CVICU 23:54
PROVIDERS: ADMIT Internal Medicine; ATTEND Internal Medicine
DX: I48.0 Paroxysmal atrial fibrillation (principal); N39.0 Urinary tract infection, site not specified; F41.9 Anxiety disorder, unspecified; M19.90 Unspecified osteoarthritis, unspecified site; I95.9 Hypotension, unspecified; E78.00 Pure hypercholesterolemia, unspecified; E78.5 Hyperlipidemia, unspecified; I10 Essential (primary) hypertension; Z60.2 Problems related to living alone; I71.4 Abdominal aortic aneurysm, without rupture; Z82.49 Family history of ischemic heart disease and other diseases of the circulatory system; Z90.49 Acquired absence of other specified parts of digestive tract; Z86.010 Personal history of colon polyps; Z88.5 Allergy status to narcotic agent; Z88.8 Allergy status to other drugs, medicaments and biological substances; Z91.030 Bee allergy status; Z90.710 Acquired absence of both cervix and uterus; Z87.891 Personal history of nicotine dependence
CPT/HCPCS: 36415; 71010; 78452; 80048; 80061; 81001; 83735; 83880; 84443; 84484; 85027; 87086; 87186; 93005; 93017; 93306; 96365; 96374; 96375; 96376; A9500; G0481; J0696; J2785; J3490; J7030; J7060; 99285-25

== ENCOUNTER → 2016-07-29 | Outpatient (CLI) | payer MEDICARE, BC ==
[~2016-07-29] MED LIST changes: +ALPR0.254 PO; +CEPH-264 PO; +HYDR-2680 PO; +LISI-334 PO; +METO25TA9 PO; +MULT-245 PO; +OM-31CAP4 PO; +POTA500T5 PO; +PRAM0.255 PO; +SOTA80TA PO
--- NOTE | 2016-07-30 11:35 | RAD ---
APPROVED REPORT Patient Location : OUT-PATIENT Indications Lower Extremity Edema : Bilateral Accessory Veins Right Anterior Accessory Vein : Present : Yes Reflux : No Leftt Anterior Accessory Vein : Present : Yes Reflux : No Right Posterior Accessory Vein : Present : No Reflux : No Left Posterior Accessory Vein : Present : No Reflux : No Findings Bilateral greater and lesser saphenous veins were imaged for reflux. On limited tuttle scale imaging there is no evidence of thrombus in the bilateral greater and lesser sa phenous veins and the SFJs. Spectral waveforms do not demonstrate any evidence of reflux in the L/R GSV which measure approximate ly 5.3 mm and 5.5 mm respectively. Color doppler does not reveal reflux. The bilateral lesser saphenous veins were not well visualized but there does not appear to be signifi cant reflux. Critical Notification Critical Value: No <Conclusion> Negative for reflux in the bilateral lesser and greater saphenous veins.
== END | disposition home or self-care (01) ==
LOC: US 08:18
PROVIDERS: ATTEND Internal Medicine Cardiovascular Disease
DX: I87.2 Venous insufficiency (chronic) (peripheral) (principal)
CPT/HCPCS: 93970

== ENCOUNTER 2017-03-17 12:53 | Inpatient (IN) | payer MEDICARE ==
[~2017-03-17] VITALS: Ht 163.8 cm; Wt 79.4 kg
[~2017-03-17 12:53] MED LIST changes: +DILT120C80 PO; -DILT120C97 PO; -HYDR-2666 PO; +HYDR-2758 PO; +METO-239 PO; -METO25TA9 PO; -SOTA80TA PO; +SOTA80TA48 PO
[2017-03-17] MEDS ORDERED: IV NORMAL SALINE 1000ML BAG 1,000 ML IV SCH (13:20)
--- NOTE | 2017-03-17 13:26 | EKG ---
[facility] [address] [place] [address] Test Date: 2017-03-17 Test Time: 13:05:14 Pat Name: ANASTASIA OSEGUERA Department: Room: Gender: F Run Lead: : 1950 Requested By: LES SIMMONS Order Number: [id number] Reading MD: Carl Hawthorne Measurements Intervals [place] Rate: 128 P: IN: QRS: 36 QRSD: 80 T: 126 QT: 308 QTc: 453 Interpretive Statements IRREGULAR RHYTHM, ATRIAL FIBRILLATION WITH A RAPID VENTRICULAR RESPONSE QRS(T) CONTOUR ABNORMALITY CONSIDER ANTEROLATERAL MYOCARDIAL DAMAGE ST & T ABNORMALITY, CONSIDER INFERIOR ISCHEMIA OR LEFT VENTRICULAR STRAIN ABNORMAL ECG RI6.01 Compared to ECG 06/17/2016 10:13:23 T-wave abnormality now present Possible ischemia now present Sinus rhythm no longer present Electronically Signed On 03-17-2017 17:55:09 PERSONAL PROPERTY APPRAISER by Carl Hawthorne
[2017-03-17] MEDS ORDERED: dilTIAZem IV PUSH 25 MG/5 ML VIAL IVP ONE (13:30)
[2017-03-17 13:35] LABS: BASO # 0.1 x10^3/uL (0.0-0.2); BASO % 1 % (0-3); EOS % 3 % (0-3); HEMATOCRIT 46.7 % (36.0-47.0); HEMOGLOBIN 15.5 g/dL (12.0-15.5); LYMPH # 2.3 x10^3/uL (1.0-4.8); LYMPH % 25 % (24-48); MEAN CORPUSCULAR HEMOGLOBIN 29 pg (25-35); MEAN CORPUSCULAR HGB CONC 33 g/dL (31-37); MEAN CORPUSCULAR VOLUME 86 fL (79-100); MONO % 3 % (0-9); NEUT % 69 % (31-73); PLATELET COUNT 209 x10^3/uL (140-400); RED BLOOD COUNT 5.44 x10^6/uL (3.50-5.40); WHITE BLOOD COUNT 9.1 x10^3/uL (4.0-11.0)
--- NOTE | 2017-03-17 13:57 | RAD ---
Portable chest, 03/17/2017: History: Tachycardia Comparison is is made to a study from 06/15/2016. The heart size and pulmonary vascularity are normal. There is calcific plaquing of the aorta. A calcified granuloma is present in the right lung. No acute infiltrates are seen. There is no evidence of pleural fluid. IMPRESSION: No acute cardiopulmonary abnormality is detected.
--- NOTE | 2017-03-17 14:08 | PHYS DOC ---
Past Medical History Past Medical History: A-Fib, High Cholesterol, Hypertension, Other Additional Past Medical Histor: bladder stones, AAA, bowel obstruction Past Surgical History: Cholecystectomy, Hysterectomy, Other Additional Past Surgical Histo: bladder lift; bladder stone removal, COLON RESECTION Alcohol Use: Occasionally Drug Use: None Adult General Chief Complaint Chief Complaint: RAPID HEART RATE HPI HPI Patient is a 66 year old female who presents with complaint of rapid heart rate. Patient states that her symptoms started approximately 30 minutes prior to arrival. The patient states that she has had history of atrial fibrillation with RVR. Patient follows Dr. Wang of cardiology and is currently on diltiazem therapy. The patient states that she had associated head pain and chest pain upon onset of symptoms, however she states her chest pain has resolved at this time. Patient does still feel palpitations and elevated heart rate. Patient denies any fever but does state that she has been treated recently for urinary tract infection. Patient denies any flank pain or abdominal pain. Review of Systems Review of Systems Constitutional: Denies fever or chills [] Eyes: Denies change in visual acuity, redness, or eye pain [] HENT: Denies nasal congestion or sore throat [] Respiratory: Denies cough or shortness of breath [] Cardiovascular: Palpitations still present, chest pain which is currently resolved[] GI: Denies abdominal pain, nausea, vomiting, bloody stools or diarrhea [] : Denies dysuria or hematuria [] Musculoskeletal: Denies back pain or joint pain [] Integument: Denies rash or skin lesions [] Neurologic: Headache, currently resolved, denies focal weakness or sensory changes [] All other systems were reviewed and found to be within normal limits, except as documented in this note. Current Medications Current Medications Current Medications Medications (Trade) Dose Ordered Sig/Riya Start Time Stop Time Status Last Admin Dose Admin Acetaminophen (Tylenol) 650 mg PRN Q4HRS PRN 03/17/17 14:15 03/18/17 14:14 Diltiazem HCl (Cardizem) 20 mg 1X ONCE 03/17/17 13:30 03/17/17 13:31 DC 03/17/17 13:34 20 MG Diltiazem HCl 125 mg/Dextrose 125 ml @ 10 mls/hr 1X ONCE 03/17/17 13:30 03/18/17 01:59 03/17/17 13:47 10 MLS/HR Ondansetron HCl (Zofran) 4 mg PRN Q8HRS PRN 03/17/17 14:15 03/18/17 14:14 Sodium Chloride 1,000 ml @ 125 mls/hr Q8H 03/17/17 14:12 03/18/17 14:11 Allergies Allergies Allergies Coded Allergies Type Severity Reaction Last Updated Verified codeine Allergy Intermediate 12/07/14 Yes metaxalone Allergy Intermediate 12/07/14 Yes nifedipine Allergy Intermediate Hives 12/07/14 Yes venom-honey bee Allergy Intermediate 12/07/14 Yes Physical Exam Physical Exam Constitutional: Alert, afebrile, appears in mild to moderate discomfort. [] HENT: Normocephalic, atraumatic, bilateral external ears normal, oropharynx moist, no oral exudates, nose normal. [] Eyes: PERRLA, EOMI, conjunctiva normal, no discharge. [] Neck: Normal range of motion, no tenderness, supple, no stridor. [] Cardiovascular: Tachycardia, irregular rhythm, no murmur[] Lungs & Thorax: Bilateral breath sounds clear to auscultation [] Abdomen: Bowel sounds normal, soft, no tenderness, no masses, no pulsatile masses. [] Skin: Warm, dry, no erythema, no rash. [] Back: No tenderness, no CVA tenderness. [] Extremities: No tenderness, no cyanosis, no clubbing, ROM intact, no edema. [] Neurologic: Alert and oriented X 3, normal motor function, normal sensory function, no focal deficits noted. [] Current Patient Data Vital Signs Vital Signs Date Time Temp Pulse Resp B/P (MAP) Pulse Ox O2 Delivery O2 Flow Rate FiO2 03/17/17 14:27 109 30 121/61 (81) 96 Room Air 03/17/17 13:03 98.2 98.2 Lab Values Laboratory Tests Test 03/17/17 13:20 03/17/17 14:24 White Blood Count 9.1 x10^3/uL (4.0-11.0) Red Blood Count 5.44 x10^6/uL (3.50-5.40) H Hemoglobin 15.5 g/dL (12.0-15.5) Hematocrit 46.7 % (36.0-47.0) Mean Corpuscular Volume 86 fL (79-100) Mean Corpuscular Hemoglobin 29 pg (25-35) Mean Corpuscular Hemoglobin Concent 33 g/dL (31-37) Red Cell Distribution Width 14.0 % (11.5-14.5) Platelet Count 209 x10^3/uL (140-400) Neutrophils (%) (Auto) 69 % (31-73) Lymphocytes (%) (Auto) 25 % (24-48) Monocytes (%) (Auto) 3 % (0-9) Eosinophils (%) (Auto) 3 % (0-3) Basophils (%) (Auto) 1 % (0-3) Neutrophils # (Auto) 6.3 x10^3uL (1.8-7.7) Lymphocytes # (Auto) 2.3 x10^3/uL (1.0-4.8) Monocytes # (Auto) 0.3 x10^3/uL (0.0-1.1) Eosinophils # (Auto) 0.2 x10^3/uL (0.0-0.7) Basophils # (Auto) 0.1 x10^3/uL (0.0-0.2) Sodium Level 143 mmol/L (136-145) Potassium Level 3.7 mmol/L (3.5-5.1) Chloride Level 108 mmol/L (98-107) H Carbon Dioxide Level 27 mmol/L (21-32) Anion Gap 8 (6-14) Blood Urea Nitrogen 13 mg/dL (7-20) Creatinine 0.7 mg/dL (0.6-1.0) Estimated GFR (Cockcroft-Gault) 84.0 BUN/Creatinine Ratio 19 (6-20) Glucose Level 96 mg/dL (70-99) Calcium Level 8.8 mg/dL (8.5-10.1) Magnesium Level 2.0 mg/dL (1.8-2.4) Total Bilirubin 0.3 mg/dL (0.2-1.0) Aspartate Amino Transferase (AST) 17 U/L (15-37) Alanine Aminotransferase (ALT) 29 U/L (14-59) Alkaline Phosphatase 74 U/L (46-116) Creatine Kinase 46 U/L (26-192) Creatine Kinase MB (Mass) < 0.5 ng/mL (0.0-3.6) Creatine Kinase MB Relative Index 1.1 % (0-4) Troponin I Quantitative < 0.017 ng/mL (0.000-0.055) GP-Sfq-S-Type Natriuretic Peptide 295 pg/mL (0-124) H Total Protein 6.9 g/dL (6.4-8.2) Albumin 3.1 g/dL (3.4-5.0) L Albumin/Globulin Ratio 0.8 (1.0-1.7) L Laboratory Tests 03/17/17 13:20 Laboratory Tests 03/17/17 14:24 EKG EKG Interpreted by me: Heart rate 128 bpm, atrial fibrillation with rapid ventricular response[] Radiology/Procedures Radiology/Procedures [facility] [address] [place] [address] IMAGING REPORT Signed PATIENT: ANASTASIA OSEGUERA ACCOUNT: [id number] : 1950 LOCATION: ER AGE: 66 SEX: F EXAM STATUS: REG ER ORD. PHYSICIAN: LES SIMMONS MD REASON: tachycardia 12 PROCEDURE: PORTABLE CHEST 1V Portable chest, 03/17/2017: History: Tachycardia Comparison is is made to a study from 06/15/2016. The heart size and pulmonary vascularity are normal. There is calcific plaquing of the aorta. A calcified granuloma is present in the right lung. No acute infiltrates are seen. There is no evidence of pleural fluid. IMPRESSION: No acute cardiopulmonary abnormality is detected. DICTATED and SIGNED BY: GERRI FITCH MD DATE: 03/17/17 135 CC: DARIUS NG; LES SIMMONS MD ~ [] Course & Med Decision Making Course & Med Decision Making Pertinent Labs and Imaging studies reviewed. (See chart for details) Patient found to be in A. fib with RVR. Patient started on IV diltiazem 20 mg IV push which initially helped convert patient to sinus rhythm and control the heart rate. The patient however started to continue to go into atrial fibrillation from sinus rhythm and heart rate started to mildly elevate to the 100s. Patient thus was started on a continuous infusion of IV diltiazem with improvement in rate and rhythm. The patient will be admitted to hospital for further treatment. I spoke with Dr. Cho who accepted care patient in hospital. A consult was placed to Dr. Wang of cardiology to follow with patient in hospital. Critical care time excluding procedures: 45 minutes Dragon Disclaimer Dragon Disclaimer This electronic medical record was generated, in whole or in part, using a voice recognition dictation system. Departure Departure Impression: Primary Impression: Atrial fibrillation with rapid ventricular response Disposition: ADMITTED INPATIENT Admitting Physician: Luisa Cho Condition: GUARDED Referrals: DARIUS NG (PCP) LES SIMMONS MD Mar 17, 2017 14:08
[2017-03-17] MEDS ORDERED: ONDANSETRON PF 4 MG/2 ML VIAL. IV PRN (14:15)
[2017-03-17] MEDS ORDERED: ACETAMINOPHEN 325 MG TABLET. PO PRN (14:15)
[2017-03-17 14:49] LABS: CALCIUM 8.8 mg/dL (8.5-10.1); CREATININE 0.7 mg/dL (0.6-1.0); POTASSIUM 3.7 mmol/L (3.5-5.1)
[2017-03-17 14:56] LABS: ALBUMIN 3.1 g/dL (3.4-5.0); ALBUMIN/GLOBULIN RATIO 0.8 (1.0-1.7); TOTAL BILIRUBIN 0.3 mg/dL (0.2-1.0); TOTAL PROTEIN 6.9 g/dL (6.4-8.2)
[2017-03-17 15:03] LABS: CKMB MASS < 0.5 ng/mL (0.0-3.6); CREATINE KINASE 46 U/L (26-192)
[2017-03-17] MEDS ORDERED: POTASSIUM CHLORIDE 20 MEQ TABLET.ER. PO ONE (16:30)
[2017-03-17] MEDS ORDERED: ALPRAZolam 0.25 MG TABLET PO PRN (16:30)
--- NOTE | 2017-03-17 16:35 | PDOC1 ---
History and Physical Date of Admission Date of Admission DATE: 03/17/17 TIME: 16:30 Identification/Chief Complaint Chief Complaint palpitations, jaw pain Problems: Source Source: Chart review, Patient History of Present Illness History of Present Illness Ms. Pena, is a 66 year old female admit with chest pain, dyspnea and rapid heart rate. Patient states that her symptoms started approximately 30 minutes prior to arrival to the ER "my heart just started flipping out" she felt strong palpitations like a fish was flipping in her chest. new jaw pain and headache, and she came to the ER, . The patient states that she has had history of atrial fibrillation with RVR. Dr. Wang of cardiology on diltiazem therapy. headachye and chest pain have improved in the ER on Cardizem gtt she recently took a cruise to [employer], and drank more EtOH than normal for her, but that was days ago, and she has been drinking a lot of water since Patient denies any fever but does state that she has been treated recently for urinary tract infection, noted resistance to priro abx at primary care, sample just dropped off at Dr. Urbina today Past Medical History Cardiovascular: AFIB, HTN, Hyperlipidemia, Other Pulmonary: No pertinent hx CENTRAL NERVOUS SYSTEM: Other GI: No pertinent hx Heme/Onc: No pertinent hx Hepatobiliary: No pertinent hx Psych: Anxiety Musculoskeletal: Osteoarthritis Rheumatologic: No pertinent hx Infectious disease: No pertinent hx Renal/: No pertinent hx, Urinary Incontinence, Other Endocrine: No pertinent hx Past Surgical History Past Surgical History: Hysterectomy, Other Family History Family History: Coronary Artery Disease Social History Smoke: No ALCOHOL: social Drugs: None Current Problem List Problem List Problems Medical Problems: (1) Atrial fibrillation with rapid ventricular response Status: Acute Problems: Current Medications Current Medications Current Medications Diltiazem HCl (Cardizem) 20 mg 1X ONCE IVP Last administered on 03/17/17 13: 34; Start 03/17/17 at 13:30; Stop 03/17/17 at 13:31; Status DC Diltiazem HCl 125 mg/Dextrose 125 ml @ 10 mls/hr 1X ONCE IV Last administered on 03/17/17 13:47; Start 03/17/17 at 13:30; Stop 03/18/17 at 01 :59 Sodium Chloride 1,000 ml @ 125 mls/hr Q8H IV Last administered on 03/17/17t 13:30; Start 03/17/17 at 13:20; Stop 03/17/17 at 21:19 Ondansetron HCl (Zofran) 4 mg PRN Q8HRS PRN IV NAUSEA/VOMITING; Start at 14:15; Stop 03/18/17 at 14:14 Sodium Chloride 1,000 ml @ 125 mls/hr Q8H IV ; Start 03/17/17 at 14:12; Stop 03/18/17 at 14:11 Acetaminophen (Tylenol) 650 mg PRN Q4HRS PRN PO FEVER; Start 03/17/17 at 14:15 ; Stop 03/18/17 at 14:14 Potassium Chloride (Klor-Con) 40 meq 1X ONCE PO ; Start 03/17/17 at 16:30; Stop 03/17/17 at 16:31 Alprazolam (Xanax) 0.25 mg HS PRN PO ANXIETY / AGITATION; Start 03/17/17 at 16 :30; Status UNV Apixaban (Eliquis) 5 mg BID PO ; Start 03/17/17 at 21:00; Status UNV Aspirin (Ecotrin) 81 mg DAILY PO ; Start 03/18/17 at 09:00; Status UNV Diltiazem HCl (Cardizem 24hr Cd) 120 mg DAILY PO ; Start 03/18/17 at 09:00; Status UNV Acetaminophen/ Hydrocodone Bitart (Lortab 10/325) 1 tab PRN Q8HRS PRN PO PAIN; Start 03/17/17 at 16:30; Status UNV Lisinopril (Prinivil) 20 mg DAILY PO ; Start 03/18/17 at 09:00; Status UNV Metoprolol Succinate (Toprol Xl) 25 mg DAILY PO ; Start 03/18/17 at 09:00; Status UNV Pramipexole Dihydrochloride (miraPEX) 0.25 mg HS PO ; Start 03/17/17 at 21:00; Status UNV Sotalol HCl (Betapace) 40 mg BID PO ; Start 03/17/17 at 21:00; Status UNV Active Scripts Active Keflex (Cephalexin) 500 Mg Capsule 1 Cap PO TID Reported Sotalol (Sotalol Hcl) 80 Mg Tablet 0.5 Tab PO BID Diltiazem 24HR Cd (Diltiazem Hcl) 120 Mg Cap.er.24h 1 Cap PO DAILY Potassium Gluconate 500 Mg Tablet 500 Mg PO DAILY Multi Vitamin Daily (Multivitamin) 1 Each Tablet 1 Each PO DAILY Fish Oil + Vitamin D-3 Softgel (Om-3/Dha/Epa/Fish Oil/Vit D3) 1 Each Capsule 1 Each PO HS Metoprolol Succinate ( Xl ) (Metoprolol Succinate) 25 Mg Tab.er.24h 25 Mg PO DAILY Mirapex (Pramipexole Di-Hcl) 0.25 Mg Tablet 0.25 Mg PO HS Alprazolam 0.25 Mg Tablet 0.25 Mg PO HS PRN Lortab 10-325 mg Tablet (Hydrocodone/Acetaminophen) 1 Each Tablet 1 Tab PO PRN Q8HRS PRN Lisinopril 20 Mg Tablet 20 Mg PO DAILY Aspir 81 (Aspirin) 81 Mg Tablet.dr 1 Tab PO DAILY Eliquis (Apixaban) 5 Mg Tablet 5 Mg PO BID Allergies Allergies: Coded Allergies: codeine (Verified Allergy, Intermediate, 12/07/14) metaxalone (Verified Allergy, Intermediate, 12/07/14) nifedipine (Verified Allergy, Intermediate, Hives, 12/07/14) venom-honey bee (Verified Allergy, Intermediate, 12/07/14) ROS General: No: Chills, Night Sweats, Fatigue, Malaise, Appetite, Other PSYCHOLOGICAL ROS: No: Anxiety, Behavioral Disorder, Concentration difficultie , Decreased libido, Depression, Disorientation, Hallucinations, Hostility, Irritablity, Memory difficulties, Mood Swings, Obsessive thoughts, Physical abuse, Sexual abuse, Sleep disturbances, Suicidal ideation, Other Eyes: No Blurry vision, No Decreased vision, No Double vision, No Dry eyes, No Excessive tearing, No Eye Pain, No Itchy Eyes, No Loss of vision, No Photophobia , No Scotomata, No Uses contacts, No Uses glasses, No Other HEENT: No: Heacaches, Visual Changes, Hearing change, Nasal congestion, Nasal discharge, Oral lesions, Sinus pain, Sore Throat, Epistaxis, Sneezing, Snoring, Tinnitus, Vertigo, Vocal changes, Other Respiratory: No: Cough, Hemoptysis, Orthopnea, Pleuritic Pain, Shortness of breath, SOB with excertion, Sputum Changes, Stridor, Tachypnea, Wheezing, Other Cardiovascular: yes Chest Pain, yes Palpitations, No Orthopnea, No Paroxysmal Noc. Dyspnea, No Edema, No Lt Headedness, No Other Gastrointestinal: No Nausea, No Vomiting, No Abdominal Pain, No Diarrhea, No Constipation, No Melena, No Hematochezia, No Other Genitourinary: No Dysuria, No Frequency, No Incontinence, No Hematuria, No Retention, No Discharge, No Urgency, No Pain, No Flank Pain, No Other, No , No , No , No , No , No , No Musculoskeletal: No Gait Disturbance, No Joint Pain, No Joint Stiffness, No Joint Swelling, No Muscle Pain, No Muscular Weakness, No Pain In:, No Swelling In:, No Other Neurological: No Behavorial Changes, No Bowel/Bladder ControlChng, No Confusion , No Dizziness, No Gait Disturbance, No Headaches, No Impaired Coord/balance, No Memory Loss, No Numbness/Tingling, No Seizures, No Speech Problems, No Tremors, No Visual Changes, No Weakness, No Other Skin: No Dry Skin, No Eczema, No Hair Changes, No Lumps, No Mole Changes, No Mottling, No Nail Changes, No Pruritus, No Rash, No Skin Lesion Changes, No Other, No Acne Physical Exam General: Alert, Oriented X3, Cooperative, No acute distress HEENT: Atraumatic, PERRLA, EOMI, Mucous membr. moist/pink Lungs: Normal air movement Heart: S1S2, no gallops, no murmurs Abdomen: Normal bowel sounds, Soft Extremities: No edema Skin: No breakdown Neuro: Normal speech, Sensation intact, Cranial nerves 3-12 NL Psych/Mental Status: Mental status NL, Mood NL Vitals Vitals Vital Signs Date Time Temp Pulse Resp B/P (MAP) Pulse Ox O2 Delivery O2 Flow Rate FiO2 03/17/17 14:27 109 30 121/61 (81) 96 Room Air 03/17/17 13:03 98.2 98.2 Labs Labs Laboratory Tests Test 03/17/17 13:20 03/17/17 14:24 White Blood Count 9.1 x10^3/uL (4.0-11.0) Red Blood Count 5.44 x10^6/uL (3.50-5.40) Hemoglobin 15.5 g/dL (12.0-15.5) Hematocrit 46.7 % (36.0-47.0) Mean Corpuscular Volume 86 fL (79-100) Mean Corpuscular Hemoglobin 29 pg (25-35) Mean Corpuscular Hemoglobin Concent 33 g/dL (31-37) Red Cell Distribution Width 14.0 % (11.5-14.5) Platelet Count 209 x10^3/uL (140-400) Neutrophils (%) (Auto) 69 % (31-73) Lymphocytes (%) (Auto) 25 % (24-48) Monocytes (%) (Auto) 3 % (0-9) Eosinophils (%) (Auto) 3 % (0-3) Basophils (%) (Auto) 1 % (0-3) Neutrophils # (Auto) 6.3 x10^3uL (1.8-7.7) Lymphocytes # (Auto) 2.3 x10^3/uL (1.0-4.8) Monocytes # (Auto) 0.3 x10^3/uL (0.0-1.1) Eosinophils # (Auto) 0.2 x10^3/uL (0.0-0.7) Basophils # (Auto) 0.1 x10^3/uL (0.0-0.2) Sodium Level 143 mmol/L (136-145) Potassium Level 3.7 mmol/L (3.5-5.1) Chloride Level 108 mmol/L (98-107) Carbon Dioxide Level 27 mmol/L (21-32) Anion Gap 8 (6-14) Blood Urea Nitrogen 13 mg/dL (7-20) Creatinine 0.7 mg/dL (0.6-1.0) Estimated GFR (Cockcroft-Gault) 84.0 BUN/Creatinine Ratio 19 (6-20) Glucose Level 96 mg/dL (70-99) Calcium Level 8.8 mg/dL (8.5-10.1) Magnesium Level 2.0 mg/dL (1.8-2.4) Total Bilirubin 0.3 mg/dL (0.2-1.0) Aspartate Amino Transf (AST/SGOT) 17 U/L (15-37) Alanine Aminotransferase (ALT/SGPT) 29 U/L (14-59) Alkaline Phosphatase 74 U/L (46-116) Creatine Kinase 46 U/L (26-192) Creatine Kinase MB (Mass) < 0.5 ng/mL (0.0-3.6) Creatine Kinase MB Relative Index 1.1 % (0-4) Troponin I Quantitative < 0.017 ng/mL (0.000-0.055) QU-Xib-Q-Type Natriuretic Peptide 295 pg/mL (0-124) Total Protein 6.9 g/dL (6.4-8.2) Albumin 3.1 g/dL (3.4-5.0) Albumin/Globulin Ratio 0.8 (1.0-1.7) Laboratory Tests Test 03/17/17 13:20 03/17/17 14:24 White Blood Count 9.1 x10^3/uL (4.0-11.0) Red Blood Count 5.44 x10^6/uL (3.50-5.40) Hemoglobin 15.5 g/dL (12.0-15.5) Hematocrit 46.7 % (36.0-47.0) Mean Corpuscular Volume 86 fL (79-100) Mean Corpuscular Hemoglobin 29 pg (25-35) Mean Corpuscular Hemoglobin Concent 33 g/dL (31-37) Red Cell Distribution Width 14.0 % (11.5-14.5) Platelet Count 209 x10^3/uL (140-400) Neutrophils (%) (Auto) 69 % (31-73) Lymphocytes (%) (Auto) 25 % (24-48) Monocytes (%) (Auto) 3 % (0-9) Eosinophils (%) (Auto) 3 % (0-3) Basophils (%) (Auto) 1 % (0-3) Neutrophils # (Auto) 6.3 x10^3uL (1.8-7.7) Lymphocytes # (Auto) 2.3 x10^3/uL (1.0-4.8) Monocytes # (Auto) 0.3 x10^3/uL (0.0-1.1) Eosinophils # (Auto) 0.2 x10^3/uL (0.0-0.7) Basophils # (Auto) 0.1 x10^3/uL (0.0-0.2) Sodium Level 143 mmol/L (136-145) Potassium Level 3.7 mmol/L (3.5-5.1) Chloride Level 108 mmol/L (98-107) Carbon Dioxide Level 27 mmol/L (21-32) Anion Gap 8 (6-14) Blood Urea Nitrogen 13 mg/dL (7-20) Creatinine 0.7 mg/dL (0.6-1.0) Estimated GFR (Cockcroft-Gault) 84.0 BUN/Creatinine Ratio 19 (6-20) Glucose Level 96 mg/dL (70-99) Calcium Level 8.8 mg/dL (8.5-10.1) Magnesium Level 2.0 mg/dL (1.8-2.4) Total Bilirubin 0.3 mg/dL (0.2-1.0) Aspartate Amino Transf (AST/SGOT) 17 U/L (15-37) Alanine Aminotransferase (ALT/SGPT) 29 U/L (14-59) Alkaline Phosphatase 74 U/L (46-116) Creatine Kinase 46 U/L (26-192) Creatine Kinase MB (Mass) < 0.5 ng/mL (0.0-3.6) Creatine Kinase MB Relative Index 1.1 % (0-4) Troponin I Quantitative < 0.017 ng/mL (0.000-0.055) QA-Sda-N-Type Natriuretic Peptide 295 pg/mL (0-124) Total Protein 6.9 g/dL (6.4-8.2) Albumin 3.1 g/dL (3.4-5.0) Albumin/Globulin Ratio 0.8 (1.0-1.7) VTE Prophylaxis Ordered VTE Prophylaxis Devices: Yes VTE Pharmacological Prophylaxi: Yes (outpatient meds) Assessment/Plan Assessment/Plan acute diastolic CHF Afib with RVR prior known Afib, on appropriate meds htn 'UTI, resistance to abx given as outpatient, will give rocalicia, f/u primary care JENNIFFER COONEY MD Mar 17, 2017 16:35
[2017-03-17] MEDS ORDERED: cefTRIAXone IV Push 1 GM VIAL. IVP SCH (17:00)
[2017-03-17 19:40] VITALS: BP 134/45
[2017-03-17] MEDS ORDERED: ATORVASTATIN CALCIUM 20 MG TABLET PO SCH (21:00)
[2017-03-17] MEDS ORDERED: PRAMIPEXOLE 0.25 MG TABLET. PO SCH (21:00)
[2017-03-17] MEDS: SOTALOL 80 MG TABLET. PO SCH (21:10)
[2017-03-17] MEDS: APIXABAN 5 MG TABLET. PO SCH (21:10)
[2017-03-17] MEDS: IV NORMAL SALINE 1000ML BAG 1,000 ML IV SCH (21:13)
[2017-03-17 23:12] VITALS: BP 124/54
[2017-03-18 02:36] LABS: BASO % 1 % (0-3); EOS % 4 % (0-3); HEMATOCRIT 42.6 % (36.0-47.0); HEMOGLOBIN 13.9 g/dL (12.0-15.5); LYMPH # 1.6 x10^3/uL (1.0-4.8); LYMPH % 31 % (24-48); MEAN CORPUSCULAR HEMOGLOBIN 28 pg (25-35); MEAN CORPUSCULAR HGB CONC 33 g/dL (31-37); MEAN CORPUSCULAR VOLUME 87 fL (79-100); MONO % 5 % (0-9); NEUT % 59 % (31-73); PLATELET COUNT 185 x10^3/uL (140-400); RED BLOOD COUNT 4.93 x10^6/uL (3.50-5.40); RED CELL DISTRIBUTION WIDTH 14.4 % (11.5-14.5); WHITE BLOOD COUNT 5.3 x10^3/uL (4.0-11.0)
[2017-03-18 02:55] LABS: CALCIUM 8.8 mg/dL (8.5-10.1); CREATININE 0.7 mg/dL (0.6-1.0); POTASSIUM 4.5 mmol/L (3.5-5.1)
[2017-03-18 03:20] VITALS: BP 149/63
[2017-03-18] MEDS: HYDROcodone/APAP 10/325 1 TAB TABLET PO PRN ×2 (04:48→13:24)
[2017-03-18] MEDS: IV NORMAL SALINE 1000ML BAG 1,000 ML IV SCH ×2 (05:39→06:12)
[2017-03-18 07:00] VITALS: BP 159/72
[2017-03-18] MEDS ORDERED: METOPROLOL SUCC 24HR ER 25 MG TAB.ER.24H. PO SCH (09:00)
[2017-03-18] MEDS: SOTALOL 80 MG TABLET. PO SCH ×2 (09:00→12:03)
[2017-03-18] MEDS ORDERED: LISINOPRIL 20 MG TABLET PO SCH (09:00)
[2017-03-18] MEDS ORDERED: ASPIRIN ENTERIC COATED 81 MG TABLET.DR. PO SCH (09:00)
[2017-03-18] MEDS ORDERED: ANTI-COAG MONITOR BY PHARMACY. MC PRN (09:30)
[2017-03-18 11:00] VITALS: BP 151/79
--- NOTE | 2017-03-18 11:24 | PDOC2 ---
FRANCISCO RICARDO [employer] DEPARTMENT CHAIR 03/18/17 1124: CARDIAC CONSULT DATE OF CONSULT Date of Consult DATE: 03/18/17 TIME: 11:10 REASON FOR CONSULT Reason for Consult: AFIB RVR REFERRING PHYSICIAN Referring Physician: Minnie SOURCE Source: Chart review, Patient HISTORY OF PRESENT ILLNESS HISTORY OF PRESENT ILLNESS This is a pleasant 66 yo female admitted for complains of fast HR. Upon admission she was noted with afib RVR,. She is compliant with her meds namely betapace and cardizem. As an inpt she had episodes of HR in the 40s but no symptoms involving this. Her palpiations started yesterday and was intermittent associated with nausea. Otherwise no CP, SOA. Denies any excessive caffein use and does not smoke tobacco anymore. PAST MEDICAL HISTORY Past Medical History Cardiovascular: PAFIB, HTN, Hyperlipidemia, AAA Pulmonary: No pertinent hx CENTRAL NERVOUS SYSTEM: Other GI: No pertinent hx Heme/Onc: No pertinent hx Hepatobiliary: No pertinent hx Psych: Anxiety Musculoskeletal: Osteoarthritis Rheumatologic: No pertinent hx Infectious disease: No pertinent hx Renal/: No pertinent hx, Urinary Incontinence, Other Endocrine: No pertinent hx PAST SURGICAL HISTORY Past Surgical History: Hysterectomy FAMILY HISTORY Family History: Coronary Artery Disease SOCIAL HISTORY Smoke: No ALCOHOL: none Drugs: None Lives: with Family CURRENT MEDICATIONS CURRENT MEDICATIONS Current Medications Medications (Trade) Dose Ordered Sig/Riya Route PRN Reason Start Time Stop Time Status Last Admin Dose Admin Diltiazem HCl (Cardizem) 20 mg 1X ONCE IVP 03/17/17 13:30 03/17/17 13:31 DC 03/17/17 13:34 Diltiazem HCl 125 mg/Dextrose 125 ml @ 10 mls/hr 1X ONCE IV 03/17/17 13:30 03/18/17 01:59 DC 03/17/17 13:47 Sodium Chloride 1,000 ml @ 125 mls/hr Q8H IV 03/17/17 13:20 03/17/17 21:19 DC 03/17/17 13:30 Sodium Chloride 1,000 ml @ 125 mls/hr Q8H IV 03/17/17 14:12 03/18/17 14:11 03/18/17 05:39 Potassium Chloride (Klor-Con) 40 meq 1X ONCE PO 03/17/17 16:30 03/17/17 16:31 DC 03/17/17 17:11 Alprazolam (Xanax) 0.25 mg PRN QHS PRN PO ANXIETY / AGITATION 03/17/17 16:30 03/17/17 21:10 Apixaban (Eliquis) 5 mg BID PO 03/17/17 21:00 03/17/17 21:10 Acetaminophen/ Hydrocodone Bitart (Lortab 10/325) 1 tab PRN Q8HRS PRN PO PAIN 03/17/17 16:30 03/18/17 04:48 Pramipexole Dihydrochloride (miraPEX) 0.25 mg HS PO 03/17/17 21:00 03/17/17 21:10 Sotalol HCl (Betapace) 40 mg BID PO 03/17/17 21:00 03/17/17 21:10 Ceftriaxone Sodium (Rocephin) 1 gm Q24H IVP 03/17/17 17:00 03/17/17 17:15 Atorvastatin Calcium (Lipitor) 20 mg QHS PO 03/17/17 21:00 03/17/17 21:10 Info (Anti-Coagulation Monitoring By Pharmacy) 1 each PRN DAILY PRN MC SEE COMMENTS 03/18/17 09:30 03/18/17 10:51 ALLERGIES ALLERGIES: Coded Allergies: codeine (Verified Allergy, Intermediate, 12/07/14) metaxalone (Verified Allergy, Intermediate, 12/07/14) nifedipine (Verified Allergy, Intermediate, Hives, 12/07/14) venom-honey bee (Verified Allergy, Intermediate, 12/07/14) ROS Review of System 14 point ROS evaluated with pertinent positives noted per HPI PHYSICAL EXAM General: Alert, Oriented X3, Cooperative, No acute distress HEENT: Atraumatic, Mucous membr. moist/pink Lungs: Clear to auscultation, Normal air movement Heart: Regular rate (SR), Normal S1, Normal S2 Abdomen: Soft, No tenderness Extremities: No cyanosis, No edema Skin: No breakdown, No significant lesion Neuro: Normal speech, Cranial nerves 3-12 NL Psych/Mental Status: Mental status NL, Mood NL MUSCULOSKELETAL: Osteoarthritic changes both hands VITALS VITALS Vital Signs Date Time Temp Pulse Resp B/P (MAP) Pulse Ox O2 Delivery O2 Flow Rate FiO2 03/18/17 07:00 97.8 62 19 159/72 (101) 96 Room Air 97.8 LABS Lab: Laboratory Tests Test 03/17/17 13:20 03/17/17 14:24 03/17/17 20:00 03/18/17 02:27 White Blood Count 9.1 x10^3/uL (4.0-11.0) 5.3 x10^3/uL (4.0-11.0) Red Blood Count 5.44 x10^6/uL (3.50-5.40) 4.93 x10^6/uL (3.50-5.40) Hemoglobin 15.5 g/dL (12.0-15.5) 13.9 g/dL (12.0-15.5) Hematocrit 46.7 % (36.0-47.0) 42.6 % (36.0-47.0) Mean Corpuscular Volume 86 fL (79-100) 87 fL (79-100) Mean Corpuscular Hemoglobin 29 pg (25-35) 28 pg (25-35) Mean Corpuscular Hemoglobin Concent 33 g/dL (31-37) 33 g/dL (31-37) Red Cell Distribution Width 14.0 % (11.5-14.5) 14.4 % (11.5-14.5) Platelet Count 209 x10^3/uL (140-400) 185 x10^3/uL (140-400) Neutrophils (%) (Auto) 69 % (31-73) 59 % (31-73) Lymphocytes (%) (Auto) 25 % (24-48) 31 % (24-48) Monocytes (%) (Auto) 3 % (0-9) 5 % (0-9) Eosinophils (%) (Auto) 3 % (0-3) 4 % (0-3) Basophils (%) (Auto) 1 % (0-3) 1 % (0-3) Neutrophils # (Auto) 6.3 x10^3uL (1.8-7.7) 3.1 x10^3uL (1.8-7.7) Lymphocytes # (Auto) 2.3 x10^3/uL (1.0-4.8) 1.6 x10^3/uL (1.0-4.8) Monocytes # (Auto) 0.3 x10^3/uL (0.0-1.1) 0.3 x10^3/uL (0.0-1.1) Eosinophils # (Auto) 0.2 x10^3/uL (0.0-0.7) 0.2 x10^3/uL (0.0-0.7) Basophils # (Auto) 0.1 x10^3/uL (0.0-0.2) 0.0 x10^3/uL (0.0-0.2) Sodium Level 143 mmol/L (136-145) 145 mmol/L (136-145) Potassium Level 3.7 mmol/L (3.5-5.1) 4.5 mmol/L (3.5-5.1) Chloride Level 108 mmol/L (98-107) 111 mmol/L (98-107) Carbon Dioxide Level 27 mmol/L (21-32) 29 mmol/L (21-32) Anion Gap 8 (6-14) 5 (6-14) Blood Urea Nitrogen 13 mg/dL (7-20) 14 mg/dL (7-20) Creatinine 0.7 mg/dL (0.6-1.0) 0.7 mg/dL (0.6-1.0) Estimated GFR (Cockcroft-Gault) 84.0 84.0 BUN/Creatinine Ratio 19 (6-20) Glucose Level 96 mg/dL (70-99) 105 mg/dL (70-99) Calcium Level 8.8 mg/dL (8.5-10.1) 8.8 mg/dL (8.5-10.1) Magnesium Level 2.0 mg/dL (1.8-2.4) Total Bilirubin 0.3 mg/dL (0.2-1.0) Aspartate Amino Transf (AST/SGOT) 17 U/L (15-37) Alanine Aminotransferase (ALT/SGPT) 29 U/L (14-59) Alkaline Phosphatase 74 U/L (46-116) Creatine Kinase 46 U/L (26-192) Creatine Kinase MB (Mass) < 0.5 ng/mL (0.0-3.6) Creatine Kinase MB Relative Index 1.1 % (0-4) Troponin I Quantitative < 0.017 ng/mL (0.000-0.055) < 0.017 ng/mL (0.000-0.055) < 0.017 ng/mL (0.000-0.055) SH-Mau-G-Type Natriuretic Peptide 295 pg/mL (0-124) Total Protein 6.9 g/dL (6.4-8.2) Albumin 3.1 g/dL (3.4-5.0) Albumin/Globulin Ratio 0.8 (1.0-1.7) ECHOCARDIOGRAM ECHOCARDIOGRAM <Conclusion> There is mild concentric left ventricular hypertrophy. The left ventricular systolic function is normal and the ejection fraction is within normal range. The Ejection Fraction is 55-60%. No significant valvular disease. DATE: 06/17/16 1036 STRESS TEST STRESS TEST Conclusion 1. No evidence of vasodilator stress induced EKG changes. 2. Normal myocardial perfusion at stress and rest. 3. Normal LV function. 4. Low risk study. DATE: 06/17/16 1104 ASSESSMENT/PLAN ASSESSMENT/PLAN 1. PAFIB with RVR: back on SR 2. HTN: controlled 3. Asymptomatic SB: lowest in the 40s. Recommendations 1. QTc unchanged at 453. Failed betapace therapy. Will DC cardizem and betapace. Will start on amiodarone. 2. Eliquis for stroke prevention 3. Follow up in office in 1 month. May DC today. 4. Home BP and HR monitoring Problems: SLOAN CORCORAN MD 03/18/17 1441: CARDIAC CONSULT ALLERGIES ALLERGIES: Coded Allergies: codeine (Verified Allergy, Intermediate, 12/07/14) metaxalone (Verified Allergy, Intermediate, 12/07/14) nifedipine (Verified Allergy, Intermediate, Hives, 12/07/14) venom-honey bee (Verified Allergy, Intermediate, 12/07/14) ASSESSMENT/PLAN ASSESSMENT/PLAN Patient seen and examined. Agree with STAFFING AND SCHEDULING COORDINATOR's assessment and plan. Patient presented back in sinus rhythm. Agree with stopping Cardizem secondary to bradycardia. Change antiarrhythmics to amiodarone since she failed sotalol therapy. Continue Eliquis for stroke prevention. Follow-up with our office in 1 month. Thank you for your consultation. Problems: FRANCISCO RICARDO APRN Mar 18, 2017 11:24 SLOAN CORCORAN MD Mar 18, 2017 14:41
[2017-03-18] MEDS ORDERED: AMIODARONE HCL 200 MG TABLET. PO SCH (11:30)
[2017-03-18] MEDS: APIXABAN 5 MG TABLET. PO SCH (12:03)
[2017-03-18 13:38] VITALS: BP 163/59
--- NOTE | 2017-03-18 13:42 | PDOC ---
PROGRESS NOTES Chief Complaint Chief Complaint A-Fib High Cholesterol Hypertension Bladder stones AAA Bowel obstruction History of Present Illness History of Present Illness Pt seen at bedside. She was sitting up, eating her lunch. She noted an increased headache and was concerned about her increased BP. 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 grossly intact b/l General: Alert, Cooperative, No acute distress Heart: Regular rate, Normal S1, Normal S2 Lungs: Clear, Other (No rales, rhonchi, wheezes) Extremities: No clubbing, No cyanosis Labs LABS Laboratory Tests Test 03/17/17 14:24 03/17/17 20:00 03/18/17 02:27 Sodium Level 143 mmol/L (136-145) 145 mmol/L (136-145) Potassium Level 3.7 mmol/L (3.5-5.1) 4.5 mmol/L (3.5-5.1) Chloride Level 108 mmol/L (98-107) 111 mmol/L (98-107) Carbon Dioxide Level 27 mmol/L (21-32) 29 mmol/L (21-32) Anion Gap 8 (6-14) 5 (6-14) Blood Urea Nitrogen 13 mg/dL (7-20) 14 mg/dL (7-20) Creatinine 0.7 mg/dL (0.6-1.0) 0.7 mg/dL (0.6-1.0) Estimated GFR (Cockcroft-Gault) 84.0 84.0 BUN/Creatinine Ratio 19 (6-20) Glucose Level 96 mg/dL (70-99) 105 mg/dL (70-99) Calcium Level 8.8 mg/dL (8.5-10.1) 8.8 mg/dL (8.5-10.1) Magnesium Level 2.0 mg/dL (1.8-2.4) Total Bilirubin 0.3 mg/dL (0.2-1.0) Aspartate Amino Transf (AST/SGOT) 17 U/L (15-37) Alanine Aminotransferase (ALT/SGPT) 29 U/L (14-59) Alkaline Phosphatase 74 U/L (46-116) Creatine Kinase 46 U/L (26-192) Creatine Kinase MB (Mass) < 0.5 ng/mL (0.0-3.6) Creatine Kinase MB Relative Index 1.1 % (0-4) Troponin I Quantitative < 0.017 ng/mL (0.000-0.055) < 0.017 ng/mL (0.000-0.055) < 0.017 ng/mL (0.000-0.055) IX-Mcv-Z-Type Natriuretic Peptide 295 pg/mL (0-124) Total Protein 6.9 g/dL (6.4-8.2) Albumin 3.1 g/dL (3.4-5.0) Albumin/Globulin Ratio 0.8 (1.0-1.7) White Blood Count 5.3 x10^3/uL (4.0-11.0) Red Blood Count 4.93 x10^6/uL (3.50-5.40) Hemoglobin 13.9 g/dL (12.0-15.5) Hematocrit 42.6 % (36.0-47.0) Mean Corpuscular Volume 87 fL (79-100) Mean Corpuscular Hemoglobin 28 pg (25-35) Mean Corpuscular Hemoglobin Concent 33 g/dL (31-37) Red Cell Distribution Width 14.4 % (11.5-14.5) Platelet Count 185 x10^3/uL (140-400) Neutrophils (%) (Auto) 59 % (31-73) Lymphocytes (%) (Auto) 31 % (24-48) Monocytes (%) (Auto) 5 % (0-9) Eosinophils (%) (Auto) 4 % (0-3) Basophils (%) (Auto) 1 % (0-3) Neutrophils # (Auto) 3.1 x10^3uL (1.8-7.7) Lymphocytes # (Auto) 1.6 x10^3/uL (1.0-4.8) Monocytes # (Auto) 0.3 x10^3/uL (0.0-1.1) Eosinophils # (Auto) 0.2 x10^3/uL (0.0-0.7) Basophils # (Auto) 0.0 x10^3/uL (0.0-0.2) Review of Systems Review of Systems Admits to headache Denies chest pain or shortness of air Assessment and Plan Assessmemt and Plan Problems Medical Problems: (1) Atrial fibrillation with rapid ventricular response Status: Acute ASSESSMENT: A-Fib High Cholesterol Hypertension Bladder stones AAA Bowel obstruction PLAN: Converted from AFib to sinus rhythm Continue cardiac monitoring D/c diltiazem Monitor HTN Appreciate input from cardiology Continue Abx for UTI PT/OT Problems: Comment Review of Relevant I have reviewed the following items mattie (where applicable) has been applied. Labs Laboratory Tests Test 03/17/17 13:20 03/17/17 14:24 03/17/17 20:00 03/18/17 02:27 White Blood Count 9.1 x10^3/uL (4.0-11.0) 5.3 x10^3/uL (4.0-11.0) Red Blood Count 5.44 x10^6/uL (3.50-5.40) 4.93 x10^6/uL (3.50-5.40) Hemoglobin 15.5 g/dL (12.0-15.5) 13.9 g/dL (12.0-15.5) Hematocrit 46.7 % (36.0-47.0) 42.6 % (36.0-47.0) Mean Corpuscular Volume 86 fL (79-100) 87 fL (79-100) Mean Corpuscular Hemoglobin 29 pg (25-35) 28 pg (25-35) Mean Corpuscular Hemoglobin Concent 33 g/dL (31-37) 33 g/dL (31-37) Red Cell Distribution Width 14.0 % (11.5-14.5) 14.4 % (11.5-14.5) Platelet Count 209 x10^3/uL (140-400) 185 x10^3/uL (140-400) Neutrophils (%) (Auto) 69 % (31-73) 59 % (31-73) Lymphocytes (%) (Auto) 25 % (24-48) 31 % (24-48) Monocytes (%) (Auto) 3 % (0-9) 5 % (0-9) Eosinophils (%) (Auto) 3 % (0-3) 4 % (0-3) Basophils (%) (Auto) 1 % (0-3) 1 % (0-3) Neutrophils # (Auto) 6.3 x10^3uL (1.8-7.7) 3.1 x10^3uL (1.8-7.7) Lymphocytes # (Auto) 2.3 x10^3/uL (1.0-4.8) 1.6 x10^3/uL (1.0-4.8) Monocytes # (Auto) 0.3 x10^3/uL (0.0-1.1) 0.3 x10^3/uL (0.0-1.1) Eosinophils # (Auto) 0.2 x10^3/uL (0.0-0.7) 0.2 x10^3/uL (0.0-0.7) Basophils # (Auto) 0.1 x10^3/uL (0.0-0.2) 0.0 x10^3/uL (0.0-0.2) Sodium Level 143 mmol/L (136-145) 145 mmol/L (136-145) Potassium Level 3.7 mmol/L (3.5-5.1) 4.5 mmol/L (3.5-5.1) Chloride Level 108 mmol/L (98-107) 111 mmol/L (98-107) Carbon Dioxide Level 27 mmol/L (21-32) 29 mmol/L (21-32) Anion Gap 8 (6-14) 5 (6-14) Blood Urea Nitrogen 13 mg/dL (7-20) 14 mg/dL (7-20) Creatinine 0.7 mg/dL (0.6-1.0) 0.7 mg/dL (0.6-1.0) Estimated GFR (Cockcroft-Gault) 84.0 84.0 BUN/Creatinine Ratio 19 (6-20) Glucose Level 96 mg/dL (70-99) 105 mg/dL (70-99) Calcium Level 8.8 mg/dL (8.5-10.1) 8.8 mg/dL (8.5-10.1) Magnesium Level 2.0 mg/dL (1.8-2.4) Total Bilirubin 0.3 mg/dL (0.2-1.0) Aspartate Amino Transf (AST/SGOT) 17 U/L (15-37) Alanine Aminotransferase (ALT/SGPT) 29 U/L (14-59) Alkaline Phosphatase 74 U/L (46-116) Creatine Kinase 46 U/L (26-192) Creatine Kinase MB (Mass) < 0.5 ng/mL (0.0-3.6) Creatine Kinase MB Relative Index 1.1 % (0-4) Troponin I Quantitative < 0.017 ng/mL (0.000-0.055) < 0.017 ng/mL (0.000-0.055) < 0.017 ng/mL (0.000-0.055) EQ-Axm-D-Type Natriuretic Peptide 295 pg/mL (0-124) Total Protein 6.9 g/dL (6.4-8.2) Albumin 3.1 g/dL (3.4-5.0) Albumin/Globulin Ratio 0.8 (1.0-1.7) Laboratory Tests Test 03/17/17 14:24 03/17/17 20:00 03/18/17 02:27 Sodium Level 143 mmol/L (136-145) 145 mmol/L (136-145) Potassium Level 3.7 mmol/L (3.5-5.1) 4.5 mmol/L (3.5-5.1) Chloride Level 108 mmol/L (98-107) 111 mmol/L (98-107) Carbon Dioxide Level 27 mmol/L (21-32) 29 mmol/L (21-32) Anion Gap 8 (6-14) 5 (6-14) Blood Urea Nitrogen 13 mg/dL (7-20) 14 mg/dL (7-20) Creatinine 0.7 mg/dL (0.6-1.0) 0.7 mg/dL (0.6-1.0) Estimated GFR (Cockcroft-Gault) 84.0 84.0 BUN/Creatinine Ratio 19 (6-20) Glucose Level 96 mg/dL (70-99) 105 mg/dL (70-99) Calcium Level 8.8 mg/dL (8.5-10.1) 8.8 mg/dL (8.5-10.1) Magnesium Level 2.0 mg/dL (1.8-2.4) Total Bilirubin 0.3 mg/dL (0.2-1.0) Aspartate Amino Transf (AST/SGOT) 17 U/L (15-37) Alanine Aminotransferase (ALT/SGPT) 29 U/L (14-59) Alkaline Phosphatase 74 U/L (46-116) Creatine Kinase 46 U/L (26-192) Creatine Kinase MB (Mass) < 0.5 ng/mL (0.0-3.6) Creatine Kinase MB Relative Index 1.1 % (0-4) Troponin I Quantitative < 0.017 ng/mL (0.000-0.055) < 0.017 ng/mL (0.000-0.055) < 0.017 ng/mL (0.000-0.055) QU-Grc-Y-Type Natriuretic Peptide 295 pg/mL (0-124) Total Protein 6.9 g/dL (6.4-8.2) Albumin 3.1 g/dL (3.4-5.0) Albumin/Globulin Ratio 0.8 (1.0-1.7) White Blood Count 5.3 x10^3/uL (4.0-11.0) Red Blood Count 4.93 x10^6/uL (3.50-5.40) Hemoglobin 13.9 g/dL (12.0-15.5) Hematocrit 42.6 % (36.0-47.0) Mean Corpuscular Volume 87 fL (79-100) Mean Corpuscular Hemoglobin 28 pg (25-35) Mean Corpuscular Hemoglobin Concent 33 g/dL (31-37) Red Cell Distribution Width 14.4 % (11.5-14.5) Platelet Count 185 x10^3/uL (140-400) Neutrophils (%) (Auto) 59 % (31-73) Lymphocytes (%) (Auto) 31 % (24-48) Monocytes (%) (Auto) 5 % (0-9) Eosinophils (%) (Auto) 4 % (0-3) Basophils (%) (Auto) 1 % (0-3) Neutrophils # (Auto) 3.1 x10^3uL (1.8-7.7) Lymphocytes # (Auto) 1.6 x10^3/uL (1.0-4.8) Monocytes # (Auto) 0.3 x10^3/uL (0.0-1.1) Eosinophils # (Auto) 0.2 x10^3/uL (0.0-0.7) Basophils # (Auto) 0.0 x10^3/uL (0.0-0.2) Medications Current Medications Diltiazem HCl (Cardizem) 20 mg 1X ONCE IVP Last administered on 03/17/17 13: 34; Start 03/17/17 at 13:30; Stop 03/17/17 at 13:31; Status DC Diltiazem HCl 125 mg/Dextrose 125 ml @ 10 mls/hr 1X ONCE IV Last administered on 03/17/17 13:47; Start 03/17/17 at 13:30; Stop 03/18/17 at 01 :59; Status DC Sodium Chloride 1,000 ml @ 125 mls/hr Q8H IV Last administered on 03/17/17 13:30; Start 03/17/17 at 13:20; Stop 03/17/17 at 21:19; Status DC Ondansetron HCl (Zofran) 4 mg PRN Q8HRS PRN IV NAUSEA/VOMITING; Start at 14:15; Stop 03/18/17 at 14:14 Sodium Chloride 1,000 ml @ 125 mls/hr Q8H IV Last administered on 03/18/17 05:39; Start 03/17/17 at 14:12; Stop 03/18/17 at 14:11 Acetaminophen (Tylenol) 650 mg PRN Q4HRS PRN PO FEVER; Start 03/17/17 at 14:15 ; Stop 03/18/17 at 14:14 Potassium Chloride (Klor-Con) 40 meq 1X ONCE PO Last administered on 17:11; Start 03/17/17 at 16:30; Stop 03/17/17 at 16:31; Status DC Alprazolam (Xanax) 0.25 mg PRN QHS PRN PO ANXIETY / AGITATION Last administered on 03/17/17 21:10; Start 03/17/17 at 16:30 Apixaban (Eliquis) 5 mg BID PO Last administered on 03/18/17 12:03; Start at 21:00 Aspirin (Ecotrin) 81 mg DAILY PO Last administered on 03/18/17 12:03; Start 03/18/17 at 09:00 Diltiazem HCl (Cardizem 24hr Cd) 120 mg DAILY PO ; Start 03/18/17 at 09:00; Stop 03/18/17 at 09:00; Status DC Acetaminophen/ Hydrocodone Bitart (Lortab 10/325) 1 tab PRN Q8HRS PRN PO PAIN Last administered on 03/18/17 13:24; Start 03/17/17 at 16:30 Lisinopril (Prinivil) 20 mg DAILY PO Last administered on 03/18/17 12:03; Start 03/18/17 at 09:00 Metoprolol Succinate (Toprol Xl) 25 mg DAILY PO ; Start 03/18/17 at 09:00 Pramipexole Dihydrochloride (miraPEX) 0.25 mg HS PO Last administered on 21:10; Start 03/17/17 at 21:00 Sotalol HCl (Betapace) 40 mg BID PO Last administered on 03/17/17 21:10; Start 03/17/17 at 21:00 Ceftriaxone Sodium 1 gm/ Dextrose 50 ml @ 100 mls/hr Q24H IV ; Start 03/17/17 at 16:45; Status UNV Ceftriaxone Sodium (Rocephin) 1 gm Q24H IVP Last administered on 03/17/17 17: 15; Start 03/17/17 at 17:00 Diltiazem HCl (Cardizem 24hr Cd) 180 mg DAILY PO ; Start 03/18/17 at 09:00 Atorvastatin Calcium (Lipitor) 20 mg QHS PO Last administered on 03/17/17 21: 10; Start 03/17/17 at 21:00 Info (Anti-Coagulation Monitoring By Pharmacy) 1 each PRN DAILY PRN MC SEE COMMENTS Last administered on 03/18/17 10:51; Start 03/18/17 at 09:30 Amiodarone HCl (Cordarone) 400 mg BID PO Last administered on 03/18/17 12:02 ; Start 03/18/17 at 11:30 Active Scripts Active Keflex (Cephalexin) 500 Mg Capsule 1 Cap PO TID Reported Diltiazem 24HR Cd (Diltiazem Hcl) 120 Mg Cap.er.24h 1 Cap PO DAILY Potassium Gluconate 500 Mg Tablet 200 Mg PO BID Multi Vitamin Daily (Multivitamin) 1 Each Tablet 1 Each PO DAILY Fish Oil + Vitamin D-3 Softgel (Om-3/Dha/Epa/Fish Oil/Vit D3) 1 Each Capsule 1 Each PO HS Metoprolol Succinate ( Xl ) (Metoprolol Succinate) 25 Mg Tab.er.24h 25 Mg PO DAILY Mirapex (Pramipexole Di-Hcl) 0.25 Mg Tablet 0.25 Mg PO HS Alprazolam 0.25 Mg Tablet 0.25 Mg PO HS PRN Lortab 10-325 mg Tablet (Hydrocodone/Acetaminophen) 1 Each Tablet 1 Tab PO PRN Q8HRS PRN Lisinopril 20 Mg Tablet 20 Mg PO HS Aspir 81 (Aspirin) 81 Mg Tablet. 1 Tab PO DAILY Eliquis (Apixaban) 5 Mg Tablet 5 Mg PO BID Vitals/I & O Vital Sign - Last 24 Hours 03/17/17 03/17/17 03/17/17 03/17/17 14:00 14:27 15:05 15:34 Pulse 68 109 66 62 Resp 17 30 16 22 B/P (MAP) 162/87 (112) 121/61 (81) 145/83 (103) 118/81 (93) Pulse Ox 97 96 95 96 O2 Delivery Room Air Room Air Room Air 03/17/17 03/17/17 03/17/17 03/17/17 16:04 16:34 17:04 17:25 Pulse 64 66 58 56 Resp 15 21 24 22 B/P (MAP) 138/67 (90) 133/60 (84) 161/69 (99) 140/65 (90) Pulse Ox 98 94 99 98 O2 Delivery Room Air Room Air Room Air Room Air 03/17/17 03/17/17 03/17/17 03/17/17 18:04 18:34 19:40 19:40 Temp 97.8 97.8 97.8 97.8 Pulse 54 48 54 54 Resp 16 20 18 18 B/P (MAP) 118/59 (78) 126/60 (82) 134/45 (74) 134/45 (74) Pulse Ox 95 95 94 94 O2 Delivery Room Air Room Air Room Air Room Air 03/17/17 03/17/17 03/17/17 03/18/17 20:36 21:10 23:12 03:20 Temp 98.0 98.0 Pulse 61 64 59 Resp 18 20 B/P (MAP) 134/45 124/54 (77) 149/63 (91) Pulse Ox 91 96 O2 Delivery Room Air Room Air Room Air 03/18/17 03/18/17 03/18/17 03/18/17 07:00 11:00 12:02 12:03 Temp 97.8 97.6 97.8 97.6 Pulse 62 52 65 65 Resp 19 19 B/P (MAP) 159/72 (101) 151/79 (103) Pulse Ox 96 98 O2 Delivery Room Air Room Air Intake and Output 03/17/17 03/17/17 03/18/17 14:59 22:59 06:59 Intake Total 1022 ml 1190 ml Output Total 1100 ml Balance 1022 ml 90 ml ALLEGRA KERR III DO Mar 18, 2017 13:42
[2017-03-18] MEDS ORDERED: LISINOPRIL 20 MG TABLET PO ONE (13:45)
[2017-03-18] MEDS ORDERED: hydroCHLOROthiazide 12.5 MG CAPSULE PO SCH (14:00)
[2017-03-18] MEDS ORDERED: AMIO200T2 PO (14:55)
[2017-03-18] MEDS ORDERED: HYDR12.58 PO (14:56)
[2017-03-18] MEDS ORDERED: LISI40TA PO (14:56)
[2017-03-18 15:00] VITALS: BP 130/62
[2017-03-19] MEDS ORDERED: LISINOPRIL 20 MG TABLET PO SCH (09:00)
--- NOTE | 2017-03-21 09:43 | DS ---
DATE OF DISCHARGE: 03/18/2017 ADMISSION DIAGNOSIS: Atrial fibrillation with rapid ventricular response. DISCHARGE DIAGNOSIS: Resolving atrial fibrillation with rapid ventricular response. HOSPITAL COURSE: The patient is a pleasant 66-year-old female who presented with AFib with RVR. She was admitted on a Cardizem drip. She then converted back to sinus rhythm. We went ahead and discharged her on anticoagulation. DISPOSITION: Home. ACTIVITY: As tolerated. DIET: Low sodium. MEDICATIONS: Please see MRAD. TOTAL TIME ON DISCHARGE: 33 minutes. ALLEGRA KERR DO DR: HONG/raffy JOB#: [id number] / [id number]
== END 2017-03-18 15:45 | disposition home or self-care (01) | DRG 308 ==
LOC: ER 12:53 → ED HOLD 15:13 → 2 NORTH 19:18
PROVIDERS: ADMIT Internal Medicine; ATTEND Internal Medicine
DX: I48.0 Paroxysmal atrial fibrillation (principal); I50.31 Acute diastolic (congestive) heart failure; K56.609 Unspecified intestinal obstruction, unspecified as to partial versus complete obstruction; N39.0 Urinary tract infection, site not specified; E78.00 Pure hypercholesterolemia, unspecified; I11.0 Hypertensive heart disease with heart failure; E78.5 Hyperlipidemia, unspecified; F41.9 Anxiety disorder, unspecified; M19.90 Unspecified osteoarthritis, unspecified site; Z82.49 Family history of ischemic heart disease and other diseases of the circulatory system; Z90.710 Acquired absence of both cervix and uterus; Z90.49 Acquired absence of other specified parts of digestive tract; Z88.5 Allergy status to narcotic agent; Z88.8 Allergy status to other drugs, medicaments and biological substances; Z91.030 Bee allergy status
CPT/HCPCS: 36415; 71010; 80048; 80053; 82553; 83735; 83880; 84484; 85025; 93005; 96365; 96366; 96375; J0696; J3490; J7030; 99291-25

== ENCOUNTER → 2017-08-18 | Outpatient (CLI) | payer MEDICARE | END | disposition home or self-care (01) | LOC: US 06:44 | DX: I11.0 Hypertensive heart disease with heart failure (principal); I50.31 Acute diastolic (congestive) heart failure; I71.4 Abdominal aortic aneurysm, without rupture; I34.0 Nonrheumatic mitral (valve) insufficiency; E78.5 Hyperlipidemia, unspecified; Z87.891 Personal history of nicotine dependence | CPT/HCPCS: 76770; 93306; 93975 ==